=== PATIENT | female | born 1960 | race Caucasian/White ===

== ENCOUNTER 2016-07-30 17:11 | Emergency (ER) | payer OTHER, BC ==
[~2016-07-30] VITALS: Wt 96.6 kg
[~2016-07-30 17:11] MED LIST: CEFUROXIME AXE250 MG PO; KEFLEX500 MG PO; LISINOPRIL5 MG PO; METFORMIN HYDR500 M1 PO; PYRIDIUM200 M1 PO; ULTRAM50 MG PO
[2016-07-30 17:28] VITALS: BP 134/77
[2016-07-30] MEDS ORDERED: LISINOPRIL AND1 TAB PO (17:30)
[2016-07-30] MEDS ORDERED: NAPROSYN500 MG PO (17:33)
== END 2016-07-30 18:48 | disposition home or self-care (01) ==
LOC: ED 17:11
DX: S60.031A Contusion of right middle finger without damage to nail, initial encounter (principal); R03.0 Elevated blood-pressure reading, without diagnosis of hypertension; F17.200 Nicotine dependence, unspecified, uncomplicated; W23.0XXA Caught, crushed, jammed, or pinched between moving objects, initial encounter; Y93.89 Activity, other specified; Y92.9 Unspecified place or not applicable; Y99.9 Unspecified external cause status

== ENCOUNTER → 2016-12-09 | Outpatient (CLI) | payer OTHER, BC ==
[~2016-12-09] MED LIST changes: +LISINOPRIL AND1 TAB PO; +NAPROSYN500 MG PO
[2016-12-09 08:44] LABS: ALBUMIN 3.6 gm/dl (3.1-4.5); ALKALINE PHOSPHATASE 93 U/L (45-117); BUN 14 mg/dl (7-24); CHLORIDE 104 mmol/L (98-107); CHOLESTEROL 180 mg/dL (<200); CREATININE 0.68 mg/dL (0.55-1.02); HDL CHOLESTEROL 43 mg/dl (40-60); LDL CHOLESTEROL 94 mg/dL (9-159); POTASSIUM 4.4 mmol/L (3.5-5.1); SGOT/AST 13 IU/L (3-35); SGPT/ALT 31 U/L (12-78); SODIUM 138 mmol/L (136-145); TOTAL PROTEIN 7.6 gm/dL (6.4-8.2); TRIGLYCERIDES 214 mg/dl (<150); VLDL CHOLESTEROL 43 mg/dL (6-40)
== END | disposition home or self-care (01) ==
LOC: LAB 07:51
PROVIDERS: Family Medicine
DX: E11.9 Type 2 diabetes mellitus without complications (principal); Z72.89 Other problems related to lifestyle

== ENCOUNTER → 2016-12-29 | Outpatient (CLI) | payer OTHER, BC | END | disposition home or self-care (01) | LOC: MAMMO 06:51 | DX: Z12.31 Encounter for screening mammogram for malignant neoplasm of breast (principal) ==

== ENCOUNTER → 2017-01-26 | Outpatient (CLI) | payer OTHER, BC ==
[2017-01-26 08:16] LABS: BASO # 0.1 10*3/uL (0.0-0.1); BASO % 0.8 % (0.0-1.0); EOS # 0.3 10*3/uL (0.0-0.4); EOS % 3.5 % (1.0-4.0); HEMATOCRIT 41.8 % (37.0-47.0); HEMOGLOBIN 13.7 g/dl (12.0-16.0); LYMPH # 2.7 10*3/uL (1.3-4.4); LYMPH % 31.2 % (27.0-41.0); MEAN CELL VOLUME 91.1 fl (81.0-99.0); MEAN CORPUSCULAR HGB 29.8 pg (27.0-31.0); MEAN CORPUSCULAR HGB CONC 32.8 g/dl (33.0-37.0); MEAN PLATELET VOLUME 8.8 fl (9.6-12.3); MONO # 0.9 10*3/uL (0.1-1.0); MONO % 10.3 % (3.0-9.0); NEUT # 4.7 10*3/uL (2.3-7.9); NEUT % 53.9 % (47.0-73.0); PLATELET COUNT AUTOMATED 368 10*3/uL (130-400); RED BLOOD COUNT 4.59 10*6/uL (4.10-5.10); RED CELL DISTRI WIDTH 12.5 % (0-14.5); WHITE BLOOD COUNT 8.7 10*3/uL (4.8-10.8)
== END | disposition home or self-care (01) ==
LOC: LAB 07:49
PROVIDERS: Physician Assistant
DX: R19.5 Other fecal abnormalities (principal)

== ENCOUNTER → 2017-06-22 | Outpatient (CLI) | payer OTHER, BC | END | disposition home or self-care (01) | LOC: LAB 06:54 | DX: E11.9 Type 2 diabetes mellitus without complications (principal) ==

== ENCOUNTER → 2017-10-05 | Outpatient (CLI) | payer OTHER, BC | END | disposition home or self-care (01) | LOC: LAB 07:55 | DX: E11.9 Type 2 diabetes mellitus without complications (principal) ==

== ENCOUNTER → 2018-03-14 | Outpatient (CLI) | payer OTHER, BC | END | disposition home or self-care (01) | LOC: LAB 09:10 | DX: N39.0 Urinary tract infection, site not specified (principal) ==

== ENCOUNTER → 2019-01-26 | Outpatient (CLI) | payer OTHER, BC | END | disposition home or self-care (01) | LOC: LAB 08:30 | DX: E11.9 Type 2 diabetes mellitus without complications (principal) ==

== ENCOUNTER → 2019-06-27 | Outpatient (CLI) | payer BC | END | disposition home or self-care (01) | LOC: MAMMO 05-16 11:30 | DX: Z12.31 Encounter for screening mammogram for malignant neoplasm of breast (principal) ==

== ENCOUNTER 2020-02-11 14:51 | Inpatient (IN) | payer BC ==
[~2020-02-11] VITALS: Ht 167.6 cm; Wt 103.1 kg
[2020-02-11 15:08] VITALS: BP 113/67
[2020-02-11] MEDS ORDERED: NOVOLOG MI100 UNIT/2 SQ (15:26)
[2020-02-11 16:10] LABS: BASO % 0.3 % (0.0-1.0); HEMATOCRIT 40.3 % (37.0-47.0); LYMPH # 0.7 10*3/uL (1.3-4.4); LYMPH % 12.7 % (27.0-41.0); MEAN CORPUSCULAR HGB 28.3 pg (27.0-31.0); MEAN CORPUSCULAR HGB CONC 33.3 g/dl (33.0-37.0); MEAN PLATELET VOLUME 8.5 fl (9.6-12.3); MONO # 0.5 10*3/uL (0.1-1.0); MONO % 9.3 % (3.0-9.0); NEUT # 4.5 10*3/uL (2.3-7.9); NEUT % 77.4 % (47.0-73.0); PLATELET COUNT AUTOMATED 327 10*3/uL (130-400); RED BLOOD COUNT 4.74 10*6/uL (4.10-5.10); RED CELL DISTRI WIDTH 12.2 % (0-14.5); WHITE BLOOD COUNT 5.8 10*3/uL (4.8-10.8)
[2020-02-11 16:26] LABS: ALBUMIN 2.6 gm/dl (3.1-4.5); ALKALINE PHOSPHATASE 66 U/L (45-117); BUN 15 mg/dl (7-24); CHLORIDE 95 mmol/L (98-107); CREATININE 0.99 mg/dL (0.55-1.02); LIPASE 124 U/L (73-393); SGOT/AST 44 IU/L (3-35); SGPT/ALT 27 U/L (12-78); SODIUM 132 mmol/L (136-145); TOTAL PROTEIN 7.5 gm/dL (6.4-8.2)
[2020-02-11 16:36] LABS: TROPONIN I < 0.015 ng/ml (<0.045)
--- NOTE | 2020-02-11 17:51 | NUR ---
PT GAVE ME CONSENT TO SIGN HER ADMISSION PAPERS.
[2020-02-11 18:18] LABS: ABG BASE EXCESS 1.3 mmol/L (-2.0-2.0); ARTERIAL BLOOD GAS PH 7.482 (7.35-7.45)
--- NOTE | 2020-02-11 19:08 | NUR ---
NOTIFIED BY RESIDENT DR HENRY PTS PO2 WAS 57. STATES NEED TO CONTACT DR CHOU FOR CONSULT.
--- NOTE | 2020-02-11 19:09 | NUR ---
DR CHOU NOTIFIED ORDERED INTUBATION WITH 425 TIDAL,20 RATE,10 PEEP,100% 02.
--- NOTE | 2020-02-11 19:10 | NUR ---
DR JOHNSON NOTIFIED. REQUESTING ANESTHESIA INTUBATE PT.
--- NOTE | 2020-02-11 19:13 | NUR ---
DR CHOU ALSO ORDERED DIPROVAN,AND NIMBEX PARALYTIC.
--- NOTE | 2020-02-11 19:30 | NUR ---
FAMILY NOTFIED OF PTS ORDER TO BE INTUBATED. FAMILY REQUEST MOM GIVE THE OPTION OF BIPAP.
--- NOTE | 2020-02-11 19:36 | NUR ---
PT REFUSES INTUBATION. BUT WILL TRY BIPAP.
--- NOTE | 2020-02-11 19:38 | NUR ---
DR EFFIE AYALA OF PT REFUSING INTUBATION.
[2020-02-11 21:28] VITALS: BP 113/45
[2020-02-11 21:51] LABS: ABG BASE EXCESS 1.6 mmol/L (-2.0-2.0); ARTERIAL BLOOD GAS PH 7.471 (7.35-7.45)
--- NOTE | 2020-02-11 22:15 | NUR ---
PHARMACY NOTIFIED OF THE REMDESIVIR
[2020-02-11 22:37] VITALS: BP 130/45
--- NOTE | 2020-02-11 22:38 | NUR ---
REMDESIVIR STARTED BUT THE PATIENT COMPLAINED OF IV SITE PAIN. INFUSION HELD
--- NOTE | 2020-02-11 23:04 | NUR ---
RESIDENT CALLED FOR BGL OF 61. ORDERS TO PRECEED WITH D50. RECHECK BGL AND CAN ADMINISTER ANOTHER AMP OF D50
--- NOTE | 2020-02-11 23:19 | NUR ---
ORDER FOR DEXTROSE SENT TO [facility] PER SHI RIVAS RN MULTISKILL OPERATOR
--- NOTE | 2020-02-11 23:58 | NUR ---
PT RESTING IN BED WITH EYES OPEN WATCHING TV, NO ACUTE DISTRESS NOTED WHEN THIS RN EXITED THE ROOM
[2020-02-12] VITALS (10 sets, daily range): BP systolic 92–131; BP diastolic 42–77
--- NOTE | 2020-02-12 00:38 | NUR ---
PT RESTING IN BED WITH EYES OPEN, NO ACUTE DISTRESS NOTED UPON THIS RN EXITING THE ROOM
--- NOTE | 2020-02-12 01:58 | NUR ---
PT UP ON BEDSIDE COMMODE, NO ACUTE DISTRESS NOTED
--- NOTE | 2020-02-12 03:19 | NUR ---
PT RESTING IN BVED WITH EYES OPEN, BLANKETS PROVIDED UPON REQUEST, NO COMPLAINTS VOICED AT THIS TIME, NO ACUTE DISTRESS NOTED UPON THIS RN EXITING ROOM
[2020-02-12 05:52] LABS: ALBUMIN 2.6 gm/dl (3.1-4.5); ALKALINE PHOSPHATASE 68 U/L (45-117); BUN 19 mg/dl (7-24); CHLORIDE 96 mmol/L (98-107); CREATININE 0.78 mg/dL (0.55-1.02); LDH 455 U/L (84-246); POTASSIUM 2.6 mmol/L (3.5-5.1); SGOT/AST 56 IU/L (3-35); SGPT/ALT 33 U/L (12-78); SODIUM 131 mmol/L (136-145); TOTAL PROTEIN 7.1 gm/dL (6.4-8.2)
--- NOTE | 2020-02-12 06:02 | NUR ---
PT RESTING IN BED WITH EYES CLOSED, NO ACUTE DISTRESS NOTED UPON THIS RN EXITING THE ROOM
[2020-02-12 06:24] LABS: HEMATOCRIT 39.8 % (37.0-47.0); MEAN CELL VOLUME 85.8 fl (81.0-99.0); MEAN CORPUSCULAR HGB 28.9 pg (27.0-31.0); MEAN CORPUSCULAR HGB CONC 33.7 g/dl (33.0-37.0); MEAN PLATELET VOLUME 9.2 fl (9.6-12.3); PLATELET COUNT AUTOMATED 331 10*3/uL (130-400); RED BLOOD COUNT 4.64 10*6/uL (4.10-5.10); RED CELL DISTRI WIDTH 12.5 % (0-14.5); WHITE BLOOD COUNT 5.4 10*3/uL (4.8-10.8)
[2020-02-12 06:36] LABS: ACT PARTIAL THROMBO TIME 31.9 SECONDS (20.0-32.1)
[2020-02-12 07:04] LABS: ATYPICAL LYMPHS 3 % (0-0); TOTAL CELLS COUNTED 100 #CELLS
[2020-02-12 07:05] LABS: PLATELET SUFFICIENCY NORMAL (NORMAL)
[2020-02-12 07:48] LABS: ABG BASE EXCESS 1.2 mmol/L (-2.0-2.0); ARTERIAL BLOOD GAS PH 7.452 (7.35-7.45)
[2020-02-12 07:52] LABS: FERRITIN 883.7 ng/mL (10.0-291.0); VITAMIN D, 25-HYDROXY 27.2 ng/mL (30-100)
[2020-02-12] MEDS ORDERED: EUTHYROX50 MCG PO (09:54)
[2020-02-12] MEDS ORDERED: RELION NOV100 UNIT/1 SQ (09:55)
[2020-02-12] MEDS ORDERED: ZESTORETIC 10-1 EACH PO (09:55)
[2020-02-12] MEDS ORDERED: LIVALO2 M1 PO (09:56)
[2020-02-12] MEDS ORDERED: B-121000 MCG PO (10:00)
--- NOTE | 2020-02-12 10:03 | NUR ---
PT ASSISTED TO BEDSIDE COMMODE PT PLACED ON NRB AT 15LPM PT PULSE OX DROPPED TO 76% PT PLACED BACK IN BED AND BACK ON BIPAP PULSE OX TO 97%
--- NOTE | 2020-02-12 12:01 | NUR ---
PT RESTING IN BED WITH BIPAP IN PLACE. TOLERATING BIPAP WELL. BIPAP REMOVED FOR 30 SECONDS TO DRINK FLUIDS. LOVENOX GIVEN AND BGM CHECKED AT THIS TIME. SEE EMAR. DENIES NEEDS. BIPAP REPLACED.
--- NOTE | 2020-02-12 13:42 | NUR ---
PT DOES NOT WANT TO BE A DNRCC-ARREST. SHE WISHES TO REMAIN A FULL CODE, BUT IS REFUSING INTUBATION AT THIS TIME. PT STATES THAT SHE WANTS INTUBATED IF SHE WERE TO WORSEN OR GO INTO CARDIAC ARREST. PT EDUCATED ON HER CONDITION AND REASONS FOR INTUBATION. PT EXPRESSES UNDERSTANDING.
--- NOTE | 2020-02-12 13:49 | NUR ---
PT RESTING IN BED WITH EYES CLOSED. BIPAP IN PLACE.
--- NOTE | 2020-02-12 16:10 | NUR ---
PT ASSISTED TO BSC WITH NON-REBREATHER. PT ABLE TO TRANSFER WELL. LINENS CHANGED AT THIS TIME. PT HELPED BACK INTO BED AND BIPAP REPLACED.
[2020-02-12 16:44] LABS: BUN 21 mg/dl (7-24); CHLORIDE 100 mmol/L (98-107); CREATININE 0.92 mg/dL (0.55-1.02); POTASSIUM 3.5 mmol/L (3.5-5.1); SODIUM 133 mmol/L (136-145)
--- NOTE | 2020-02-12 21:29 | NUR ---
PT TAKEN OFF BIPAP FOR 30 SECONDS TO DRINK SOME FLUIDS. BIPAP REPLACED
--- NOTE | 2020-02-12 23:30 | NUR ---
A 59 YEAR OLD FEMALE PATIENT, admitted to [facility], under the services of MARY Frey DO with a diagnosis of SUSPECTED COVID-19 Chief complaint is SHORTNESS OF BREATH AND DECREASED PULSE OX AT HOME, DIARRHEA, DRY HEAVES,COUGH AND FEVERS Patient arrived via CART WITH RN from ER. Monitor applied. Initial assessment completed. Vital signs taken and recorded. See assessment for past medical history, medications and allergies. Patient and/or family oriented to [facility] Clothing/patient valuable form completed. QUETA BOONE
--- NOTE | 2020-02-13 | NUR ---
MEDICATION RECONCILLIATION COMPLETED AT THIS TIME WITH MEDIATION CLAIM HISTORY PATIENT KNOWS MEDICATIONS. [facility] WHICH WAS UPDATED
--- NOTE | 2020-02-13 00:15 | NUR ---
THIS RN SPENT SOME TIME EXPLAINING THE IMPORTNCE OF SELF PRONING. PATIENT HAD STATED THAT HER BACK CHRONICALLY ACHED AND THAT LAYING PRONE WOULD AGGRAVATE IT. STATES SHE WOULD ATTEMPT TO LAY ON SIDE. CURRENTLY 100% ON BIPAP AND IS 94% ON PO2
--- NOTE | 2020-02-13 01:07 | NUR ---
PATIENT RESTING WITH EYES CLOSED, IS LAYING ON SIDE, NO SIGNS OR SYMPTOMS OF DISTRESS SEEN. SHE IS WITHIN SIGHT OF THIS RN. VITAL SIGNS STABLE. PULSE OXIMETRY IS 96% ON 100% FIO2. RN WILL CONTINUE TO MONITOR
--- NOTE | 2020-02-13 02:30 | NUR ---
PATIENT ASSISTED UP TO THE BEDSIDE COMMODE, ON THE BIPAP, TOLERATED WELL BUT PATIENT O2 SATURATION DID DROP TO 90% FROM THE INITIAL 96% WAS INCONTINENT OF LARGE AMOUNT OF URINE IN BRIEF THAT SHE WAS WEARING BUT ALSO URINATED INTO THE BEDSIDE COMMODE. URINES TO BE COLLECTED AND SENT.
--- NOTE | 2020-02-13 02:38 | NUR ---
URINES COLLECTED AND SENT TO THE LAB AT THIS TIME, PER DRS ORDERS.
[2020-02-13 02:47] LABS: BILIRUBIN Negative (Negative); BLOOD Negative (Negative); CLARITY Clear (Clear); COLOR Yellow (Yellow); GLUCOSE Negative (Negative); KETONE Negative (Negative); LEUKO ESTERASE 2+ (Negative); NITRITE Negative (Negative); PH 5.5 (4.5-8.0); UROBILINOGEN 0.2 E.U./dl (0.0-1.0)
[2020-02-13 02:59] LABS: BACTERIA 4+; EPITHELIAL CELLS 21-30; MUCOUS TRACE; WBC 21-30 wbc/hpf (0-5)
[2020-02-13 04:00] VITALS: BP 105/57
[2020-02-13 05:58] LABS: ALBUMIN 2.5 gm/dl (3.1-4.5); ALKALINE PHOSPHATASE 72 U/L (45-117); BUN 29 mg/dl (7-24); CHLORIDE 102 mmol/L (98-107); CREATININE 0.84 mg/dL (0.55-1.02); LDH 456 U/L (84-246); POTASSIUM 3.5 mmol/L (3.5-5.1); SGOT/AST 43 IU/L (3-35); SGPT/ALT 33 U/L (12-78); SODIUM 136 mmol/L (136-145); TOTAL PROTEIN 7.2 gm/dL (6.4-8.2)
[2020-02-13 06:35] LABS: HEMATOCRIT 41.9 % (37.0-47.0); MEAN CELL VOLUME 86.7 fl (81.0-99.0); MEAN CORPUSCULAR HGB 28.6 pg (27.0-31.0); MEAN CORPUSCULAR HGB CONC 32.9 g/dl (33.0-37.0); MEAN PLATELET VOLUME 8.9 fl (9.6-12.3); PLATELET COUNT AUTOMATED 418 10*3/uL (130-400); RED BLOOD COUNT 4.83 10*6/uL (4.10-5.10); RED CELL DISTRI WIDTH 12.5 % (0-14.5); WHITE BLOOD COUNT 5.2 10*3/uL (4.8-10.8)
[2020-02-13 07:09] LABS: ATYPICAL LYMPHS 1 % (0-0); PLATELET SUFFICIENCY HIGH (NORMAL); TOTAL CELLS COUNTED 100 #CELLS
[2020-02-13 08:00] VITALS: BP 116/74
[2020-02-13 08:45] LABS: ABG BASE EXCESS 1.7 mmol/L (-2.0-2.0); ARTERIAL BLOOD GAS PH 7.447 (7.35-7.45)
--- NOTE | 2020-02-13 10:36 | NUR ---
0830 Discussed proning w/ pt. Stated she hasn't laid on her stomach for years. 0900 RT in and re- discussed proning w/ pt. sips of water given and assisted per, RT to prone position Encouraged to remain prone for 2 hours. Remains proned at this time. 10 a meds held until pt. Awakens.
[2020-02-13 12:00] VITALS: BP 122/62
--- NOTE | 2020-02-13 12:11 | NUR ---
CM spoke to , Mahin, via phone. Patient states lives at home with her . There are 13 steps in the home. Physician: Dr. Luigi Venegas [facility] Home health services: none Patient's level of ADLs: INDEPENDENT Patient has working utilities: yes DME: none Follow-up physician's appointment after d/c: will be made by the hospitalist nurse director upon discharge Does patient want to access PORTAL?: no Discharge plan discussed with patient's . He states she lives at home with him. She is normally independent in her ADLs and ambulation. Discussed home health care services and he declines stating his daughter is a nurse. When medically stable she will be discharged to home. She will have transportation on discharge whether it will be him or their daughter. TYESHA KELLY
--- NOTE | 2020-02-13 12:57 | NUR ---
PHYSICAL THERAPY Nursing screen complete and chart reviewed. Patient admitted with PUI Covid-19, pending PCR results. Recommend skilled PT evaluation if decline in functional mobility presents. Thank you. Allegra Marr,PT,DPT
[2020-02-13 16:00] VITALS: BP 141/67; BP 176/77
--- NOTE | 2020-02-13 16:22 | NUR ---
1130 dR. Marquez IN TO EVAULATE. Strongly recommended intubation . This was discussed at length w/ pt. and Dtr. Adelina . Pt. Agreeable to intubation, and line placement . 1400 Anesthesia Stuart Garcia PATIENT ACCESS ASSOCIATE was notified of need for intubation and line placement. 1430 Pt. intubated w/ 7.5 ETT. w/o difficulty , secured to vent. MLC was then placed to RIJ, with good blood return to all ports. Arterial line was then placed to RR , zero gary w/ good response and wave form. OGT and lala cath were also placed and CXR was complete to confirm all lines and tubes.
[2020-02-13 17:26] LABS: ABG BASE EXCESS -2.7 mmol/L (-2.0-2.0); ARTERIAL BLOOD GAS PH 7.256 (7.35-7.45)
--- NOTE | 2020-02-13 18:40 | NUR ---
PT PRONED UNDER ANESTHESIA DIRECTION ORDERED BY DR CHOU. TOLERATED WELL. LIU FRANCISCO RN
[2020-02-13 20:00] VITALS: BP 156/69
[2020-02-13 20:26] LABS: ABG BASE EXCESS -1.7 mmol/L (-2.0-2.0); ARTERIAL BLOOD GAS PH 7.279 (7.35-7.45)
--- NOTE | 2020-02-13 21:45 | NUR ---
YORDY Novoa NOTIFIED THAT PT HAS HTN WITH THE INITIATION OF REMDESIVER BY >60 POINT SBP AND THAT HTN RESOLVED ONCE THE DRUG WAS STOPPED, AND RESTARTED AT 50CC/HR.
[2020-02-13 22:00] VITALS: BP 126/65
--- NOTE | 2020-02-13 22:15 | NUR ---
DBP NOW 120. YORDY Novoa NOTIFIED AND SUGGESTED STOPPING REMDESIVER, AND NOTIFYING DR WELCH IN AM.
--- NOTE | 2020-02-13 22:24 | NUR ---
MEDICATED WITH IV DILAUDID ORDERED FOR HX BACK PAIN AND INABILTY TO PRONE PRIOR TO INTUBATION D/T BACK PAIN.
--- NOTE | 2020-02-13 23:00 | NUR ---
DAUGHTER UPDATED ON PT'S CONDITION.
--- NOTE | 2020-02-13 23:12 | NUR ---
PAIN MEDICATION APPEARS TO BE EFFECTIVE HAS BP HAS EVEN FURTHER NORMALIZED.
[2020-02-14] VITALS (12 sets, daily range): BP systolic 99–175; BP diastolic 54–78
--- NOTE | 2020-02-14 04:42 | NUR ---
MEDICATED WITH IV DILAUDID ORDERED FOR SIGNS OF DISCOMFORT/HTN/HX MYALGIA/BACK PAIN.
--- NOTE | 2020-02-14 05:40 | NUR ---
MEDICATION EFFECTIVE FOR DISCOMFORT.
[2020-02-14 06:07] LABS: ALBUMIN 2.6 gm/dl (3.1-4.5); ALKALINE PHOSPHATASE 77 U/L (45-117); CHLORIDE 103 mmol/L (98-107); CPK 53 U/L (26-192); CREATININE 0.97 mg/dL (0.55-1.02); LDH 391 U/L (84-246); SGOT/AST 34 IU/L (3-35); SGPT/ALT 33 U/L (12-78); SODIUM 139 mmol/L (136-145); TOTAL PROTEIN 7.1 gm/dL (6.4-8.2); TRIGLYCERIDES 238 mg/dl (<150)
[2020-02-14 06:10] LABS: BUN 45 mg/dl (7-24)
[2020-02-14 07:16] LABS: HEMATOCRIT 43.6 % (37.0-47.0); MEAN CORPUSCULAR HGB 28.5 pg (27.0-31.0); MEAN CORPUSCULAR HGB CONC 31.4 g/dl (33.0-37.0); MEAN PLATELET VOLUME 8.8 fl (9.6-12.3); PLATELET COUNT AUTOMATED 540 10*3/uL (130-400); RED BLOOD COUNT 4.81 10*6/uL (4.10-5.10); RED CELL DISTRI WIDTH 12.9 % (0-14.5)
[2020-02-14 07:20] LABS: ABG BASE EXCESS -0.3 mmol/L (-2.0-2.0); ARTERIAL BLOOD GAS PH 7.24 (7.35-7.45)
[2020-02-14 07:23] LABS: MEAN CELL VOLUME 90.6 fl (81.0-99.0)
--- NOTE | 2020-02-14 08:00 | NUR ---
REMAINS IN COVID ISOLATION ON VENT. VS TAKEN AND RECORDED. SKIN WARM AND DRY. PATIENT REMAINS IN PRONE POSITION. HEAD MOVED TO LOOK TO RIGHT WITH ARMS REPOSITIONED ALSO. RT BRACHIAL ARTERY LINE CALIBRATED WITH GOOD WAVE FORM. GLYNN PATENT FOR STRAW COLORED URINE. OGT PLACEMENT CHECKED WITH AIR BOLUS. LIU FRANCISCO RN
[2020-02-14 08:22] LABS: PLATELET SUFFICIENCY HIGH (NORMAL); TOTAL CELLS COUNTED 100 #CELLS
--- NOTE | 2020-02-14 09:00 | NUR ---
Patient is intubated and in COVID isolation precautions. CM will continue to follow for any discharge planning needs.
--- NOTE | 2020-02-14 10:30 | NUR ---
PATIENT UNPRONED. TOLERATED WELL. NO WOUNDS NOTED. LIU FRANCISCO RN
--- NOTE | 2020-02-14 10:45 | NUR ---
PHILOSOPHY FACULTY SCHOOL AGE PROGRAM ASSOCIATE PHONED TO PRONE PT PER DR CHOU.
--- NOTE | 2020-02-14 14:17 | NUR ---
REPOSTIONED FOR COMFORT. NO WOUNDS. DIPROVAN AND NIMBEX CONTINUE. LIU FRANCISCO RN
[2020-02-14 14:23] LABS: ABG BASE EXCESS 1.9 mmol/L (-2.0-2.0); ARTERIAL BLOOD GAS PH 7.36 (7.35-7.45)
--- NOTE | 2020-02-14 19:15 | NUR ---
RESTING IN THE SUPINE POSITION WITH NO DISTRESS NOTED. NIBEX AND DIPRIVAN GTTS REMAIN. VSS. DAUGHTER UPDATED ON PT'S CONDITION.
[2020-02-14 21:45] LABS: ABG BASE EXCESS 2.2 mmol/L (-2.0-2.0); ARTERIAL BLOOD GAS PH 7.311 (7.35-7.45)
--- NOTE | 2020-02-14 22:00 | NUR ---
called with ABG results. Stated to prone the patient. ABG in 2 hours and in the AM.
--- NOTE | 2020-02-14 22:05 | NUR ---
MEDICATED WITH IV DILAUDID ORDERED FOR PT NODDING YES TO C/O BACK PAIN.
--- NOTE | 2020-02-14 23:00 | NUR ---
DR CHOU NOTIFIED OF MAP 65-70. NEW ORDERS RECEIVED.
--- NOTE | 2020-02-14 23:00 | NUR ---
MEDICATION APPEARS EFFECTIVE FOR PAIN.
[2020-02-15] VITALS (12 sets, daily range): BP systolic 103–165; BP diastolic 56–77
--- NOTE | 2020-02-15 00:30 | NUR ---
Pt proned with no complications with the airway. Pt is in swimming position with her head and breathing tube to the patients left. FiO2 60% - SPO2 98%
[2020-02-15 03:07] LABS: ABG BASE EXCESS 2.2 mmol/L (-2.0-2.0); ARTERIAL BLOOD GAS PH 7.289 (7.35-7.45)
[2020-02-15 06:42] LABS: HEMATOCRIT 42.7 % (37.0-47.0); MEAN CORPUSCULAR HGB 27.9 pg (27.0-31.0); MEAN CORPUSCULAR HGB CONC 30.7 g/dl (33.0-37.0); MEAN PLATELET VOLUME 8.7 fl (9.6-12.3); PLATELET COUNT AUTOMATED 551 10*3/uL (130-400); RED BLOOD COUNT 4.69 10*6/uL (4.10-5.10); RED CELL DISTRI WIDTH 13.2 % (0-14.5); WHITE BLOOD COUNT 15.6 10*3/uL (4.8-10.8)
[2020-02-15 06:46] LABS: ALBUMIN 2.5 gm/dl (3.1-4.5); ALKALINE PHOSPHATASE 80 U/L (45-117); CHLORIDE 106 mmol/L (98-107); CREATININE 0.97 mg/dL (0.55-1.02); LDH 343 U/L (84-246); POTASSIUM 3.8 mmol/L (3.5-5.1); SGOT/AST 22 IU/L (3-35); SGPT/ALT 30 U/L (12-78); SODIUM 143 mmol/L (136-145); TOTAL PROTEIN 6.9 gm/dL (6.4-8.2); TRIGLYCERIDES 233 mg/dl (<150)
[2020-02-15 06:48] LABS: BUN 55 mg/dl (7-24); CPK 144 U/L (26-192)
--- NOTE | 2020-02-15 06:55 | NUR ---
MEDICATED WITH IV DILAUDID ORDERED FOR NOTED AGITATION AND HX BACK PAIN.
[2020-02-15 07:22] LABS: ATYPICAL LYMPHS 1 % (0-0); PLATELET SUFFICIENCY HIGH (NORMAL); TOTAL CELLS COUNTED 100 #CELLS
--- NOTE | 2020-02-15 07:30 | NUR ---
MEDICATION EFFECTIVE FOR PAIN/AGITATION.
[2020-02-15 07:36] LABS: ABG BASE EXCESS 1.1 mmol/L (-2.0-2.0); ARTERIAL BLOOD GAS PH 7.274 (7.35-7.45)
--- NOTE | 2020-02-15 09:33 | NUR ---
PT REMAINS INTUBATED,PARALYZED AND SEDATED. VSS. LUNG ROBINS DIM. POX 96% ON 60% FIO2. PT SUCTIONED FOR A SCANT AMOUNT OF WHITE MUCUS. OGT PLACEMENT VERIFIED WITH AN AIR BOLUS. ABD. SOFT WITH ACTIVE BOWEL SOUNDS. GLYNN PATENT FOR CLEAR STRAW COLORED URINE. NO PERIPHERAL EDEMA NOTED AT THIS TIME. PT IS IN PRONED POSITION UNTIL 1630 TODAY. WILL CONTINUE TO MONITOR PT.
--- NOTE | 2020-02-15 12:11 | NUR ---
IV MORPHINE GIVEN PER ORDER OF DR CHOU. PT'S SBP DID DROP FOR A SHORT PD OF TIME FROM 120'S TO 80'S AND THEN RETIRNED TO 110'S. PT REMAINS PRONED.
[2020-02-15 13:50] LABS: ABG BASE EXCESS 1.9 mmol/L (-2.0-2.0); ARTERIAL BLOOD GAS PH 7.287 (7.35-7.45)
--- NOTE | 2020-02-15 16:30 | NUR ---
PT UNPRONED. PT TOLERATED PRONING WELL. ABG'S 2 HOURS AFTER UNPRONED. WELTS NOTED TO LEVENOX INJECTION SITES. RESIDENT NOTIFIED.
--- NOTE | 2020-02-15 16:54 | NUR ---
PT SUPINED AT 4:45. PT TOLERATED WELL. TUBE IS SECURE AND IN PLACE.
[2020-02-15 19:33] LABS: ABG BASE EXCESS 4.2 mmol/L (-2.0-2.0); ARTERIAL BLOOD GAS PH 7.314 (7.35-7.45)
[2020-02-15 20:06] LABS: ABG BASE EXCESS 4.3 mmol/L (-2.0-2.0); ARTERIAL BLOOD GAS PH 7.314 (7.35-7.45)
--- NOTE | 2020-02-15 21:13 | NUR ---
MEDICATED WITH PO TYLENOL VIA OG FOR TEMP OF 100.8.
--- NOTE | 2020-02-15 21:30 | NUR ---
DAUGHTER UPDATED ON PT'S CONDITION.
[2020-02-15 23:11] LABS: ABG BASE EXCESS 4.5 mmol/L (-2.0-2.0); ARTERIAL BLOOD GAS PH 7.31 (7.35-7.45)
[2020-02-16] VITALS (15 sets, daily range): BP systolic 82–180; BP diastolic 44–82
--- NOTE | 2020-02-16 04:00 | NUR ---
TEMP 99.5. TYLENOL SOMEWHAT EFFECTIVE.
--- NOTE | 2020-02-16 04:33 | NUR ---
DR WANG NOTIFIED OF BLANCHED/WHEELED AREA AROUND LOVENOX INJECTIONS, OOZING IV SITE 12HRS POST REMOVAL AND STOOL OB+. LOVENOX NOT GIVEN LAST NIGHT AND NOW TO BE D/C'D.
--- NOTE | 2020-02-16 06:04 | NUR ---
MEDICATED WITH IV TORADOL ORDERED FOR SIGNS OF IRRITATION, HX BACK PAIN.
[2020-02-16 06:15] LABS: HEMATOCRIT 39.4 % (37.0-47.0); MEAN CELL VOLUME 92.7 fl (81.0-99.0); MEAN CORPUSCULAR HGB CONC 30.2 g/dl (33.0-37.0); MEAN PLATELET VOLUME 8.9 fl (9.6-12.3); PLATELET COUNT AUTOMATED 476 10*3/uL (130-400); RED BLOOD COUNT 4.25 10*6/uL (4.10-5.10); RED CELL DISTRI WIDTH 13.3 % (0-14.5); WHITE BLOOD COUNT 10.5 10*3/uL (4.8-10.8)
--- NOTE | 2020-02-16 06:15 | NUR ---
FIO2 INCREASED TO 45%.
[2020-02-16 06:16] LABS: ALBUMIN 2.7 gm/dl (3.1-4.5); ALKALINE PHOSPHATASE 76 U/L (45-117); BUN 64 mg/dl (7-24); CHLORIDE 110 mmol/L (98-107); CREATININE 1.03 mg/dL (0.55-1.02); LDH 311 U/L (84-246); POTASSIUM 4.5 mmol/L (3.5-5.1); SGOT/AST 24 IU/L (3-35); SGPT/ALT 28 U/L (12-78); SODIUM 144 mmol/L (136-145); TOTAL PROTEIN 6.9 gm/dL (6.4-8.2); TRIGLYCERIDES 214 mg/dl (<150)
[2020-02-16 06:21] LABS: CPK 221 U/L (26-192)
[2020-02-16 07:25] LABS: TOTAL CELLS COUNTED 100 #CELLS
[2020-02-16 07:26] LABS: PLATELET SUFFICIENCY HIGH (NORMAL)
[2020-02-16 08:35] LABS: ABG BASE EXCESS 4.7 mmol/L (-2.0-2.0); ARTERIAL BLOOD GAS PH 7.363 (7.35-7.45)
[2020-02-16 09:15] LABS: ATYPICAL LYMPHS 2 % (0-0)
--- NOTE | 2020-02-16 10:01 | NUR ---
0822 Diprovan and Nimbex to OFF . w/i 5 min. pt. pulling at restraints and opening eyes spontaniously. Attempt w/ reassurance and re-orientation not effective. 0849 for the safety of pt. and prevention of extubation . meds were resumed.
--- NOTE | 2020-02-16 12:11 | NUR ---
Repositioned q2h. oral care q2h. propofol decreased to [address] Altamirano in to evaulate.
[2020-02-16 14:50] LABS: ARTERIAL BLOOD GAS PH 7.334 (7.35-7.45)
--- NOTE | 2020-02-16 16:37 | NUR ---
Dr. Magaña in to [facility] . Orders were recieved. Heparin gtt and insulin gtt up to infuse. Repositioned q2h. oral care q2h. PM care complete.
--- NOTE | 2020-02-16 19:30 | NUR ---
Patient resting quietly with no c/o discomfort. Respirations easy and regular. Vital signs stable. No overt distress. CYRUS DIAMOND
--- NOTE | 2020-02-16 20:00 | NUR ---
DAUGHTER UPDATED ON PT'S CONDITION.
[2020-02-17] VITALS (12 sets, daily range): BP systolic 110–188; BP diastolic 53–87
--- NOTE | 2020-02-17 | NUR ---
Patient resting quietly with no c/o discomfort. Respirations easy and regular. Vital signs stable. No overt distress. CYRUS DIAMOND
--- NOTE | 2020-02-17 04:00 | NUR ---
Patient resting quietly with no c/o discomfort. Respirations easy and regular. Vital signs stable. No overt distress. CYRUS DIAMOND
[2020-02-17 06:22] LABS: BASO % 0.1 % (0.0-1.0); HEMATOCRIT 36.9 % (37.0-47.0); LYMPH # 1.2 10*3/uL (1.3-4.4); LYMPH % 7.6 % (27.0-41.0); MEAN CELL VOLUME 95.3 fl (81.0-99.0); MEAN CORPUSCULAR HGB 28.7 pg (27.0-31.0); MEAN CORPUSCULAR HGB CONC 30.1 g/dl (33.0-37.0); MEAN PLATELET VOLUME 9.2 fl (9.6-12.3); MONO # 1.5 10*3/uL (0.1-1.0); MONO % 9.2 % (3.0-9.0); NEUT # 13.3 10*3/uL (2.3-7.9); NEUT % 81.7 % (47.0-73.0); PLATELET COUNT AUTOMATED 427 10*3/uL (130-400); RED BLOOD COUNT 3.87 10*6/uL (4.10-5.10); RED CELL DISTRI WIDTH 13.7 % (0-14.5); WHITE BLOOD COUNT 16.2 10*3/uL (4.8-10.8)
[2020-02-17 06:37] LABS: ALBUMIN 2.3 gm/dl (3.1-4.5); ALKALINE PHOSPHATASE 67 U/L (45-117); CHLORIDE 120 mmol/L (98-107); CREATININE 0.75 mg/dL (0.55-1.02); LDH 256 U/L (84-246); POTASSIUM 4.3 mmol/L (3.5-5.1); SGOT/AST 19 IU/L (3-35); SGPT/ALT 27 U/L (12-78); SODIUM 152 mmol/L (136-145); TOTAL PROTEIN 6.4 gm/dL (6.4-8.2)
[2020-02-17 06:56] LABS: BUN 50 mg/dl (7-24)
[2020-02-17 06:59] LABS: ACT PARTIAL THROMBO TIME 52.4 SECONDS (20.0-32.1)
[2020-02-17 08:15] LABS: ABG BASE EXCESS 3.7 mmol/L (-2.0-2.0); ARTERIAL BLOOD GAS PH 7.337 (7.35-7.45)
--- NOTE | 2020-02-17 08:42 | NUR ---
0753 Sedation to OFF, Full assessment. OGT secure, placement verification w/ air bolus. ETT secure 23 at lip level. Oral mucosa dry and oral care given . ETT suction for large amt thick yellow mucous. MLC RIJ secure. dressing intact. 0800 Awake restless shaking head and pulling at soft restraint. Attempts to re- orient failed. Opens eyes to mention of daughters name. 0821 Sedation resumed. 0847 continues to move head and BUE less aggressivly.
--- NOTE | 2020-02-17 09:50 | NUR ---
Dr. Elizabeth ans service was notified of consult.
--- NOTE | 2020-02-17 14:34 | NUR ---
dR. Marquez IN TO [facility]. Orders were recieved. ETT was advanced 1.5cm to 24.5 at lip level. per RT Maira. TF was increased to 30/h. pt. was repositioned and oral care was given.
[2020-02-17 16:10] LABS: ABG BASE EXCESS 4.8 mmol/L (-2.0-2.0); ARTERIAL BLOOD GAS PH 7.346 (7.35-7.45)
--- NOTE | 2020-02-17 18:49 | NUR ---
BGM <150 x 3 , BGM direction changed to q2h. Repositioned Q2h.
[2020-02-18] VITALS (12 sets, daily range): BP systolic 100–186; BP diastolic 53–85
--- NOTE | 2020-02-18 00:45 | NUR ---
Patient resting quietly with no c/o discomfort. Respirations easy and regular. Vital signs stable. No overt distress. CYRUS DIAMOND
--- NOTE | 2020-02-18 04:00 | NUR ---
CXR EXPEDITED FOR SATURATION. CXR IMAGING SHOWS WORSENING ON THE LEFT. ABGS DRAWN AND ARE COMPARABLE TO THE LAST, YET A MISMATCH TO THE SPO2 AND PO2 EXISTS. SPO2 SENSOR MOVED TO LOWER EXTREMITY WHERE SPO2 REFLECTS A MORE TRUE SATURATION.
[2020-02-18 04:13] LABS: ABG BASE EXCESS 5.7 mmol/L (-2.0-2.0); ARTERIAL BLOOD GAS PH 7.383 (7.35-7.45)
[2020-02-18 06:27] LABS: BUN 41 mg/dl (7-24); CHLORIDE 117 mmol/L (98-107); CREATININE 0.59 mg/dL (0.55-1.02); POTASSIUM 4.4 mmol/L (3.5-5.1); SGOT/AST 32 IU/L (3-35); SGPT/ALT 33 U/L (12-78); SODIUM 149 mmol/L (136-145)
[2020-02-18 06:31] LABS: ALKALINE PHOSPHATASE 62 U/L (45-117); CPK 54 U/L (26-192); LDH 251 U/L (84-246)
[2020-02-18 06:58] LABS: HEMATOCRIT 33.3 % (37.0-47.0); MEAN CELL VOLUME 96.2 fl (81.0-99.0); MEAN CORPUSCULAR HGB 28.6 pg (27.0-31.0); MEAN CORPUSCULAR HGB CONC 29.7 g/dl (33.0-37.0); MEAN PLATELET VOLUME 9.5 fl (9.6-12.3); PLATELET COUNT AUTOMATED 383 10*3/uL (130-400); RED BLOOD COUNT 3.46 10*6/uL (4.10-5.10); RED CELL DISTRI WIDTH 13.8 % (0-14.5); WHITE BLOOD COUNT 13.5 10*3/uL (4.8-10.8)
[2020-02-18 08:57] LABS: PLATELET SUFFICIENCY NORMAL (NORMAL); TOTAL CELLS COUNTED 100 #CELLS
--- NOTE | 2020-02-18 08:57 | NUR ---
0725 Sedation to off. Full assessment OGT secure placement verification w/ air bolus.ETT secure. Oral mucosa dry and oral care was given. w/i 5 min. w/o sedation. Pt. is pulling at restraint and shaking head. opens eyes spontaneously , does not follow verbal command. Incontinent of loose dark green stool. christy care was given , and pt. was repositioned .
--- NOTE | 2020-02-18 09:00 | NUR ---
Patient is intubated and in COVID isolation precautions. CM will continue to follow for any discharge planning needs.
[2020-02-18 09:03] LABS: ABG BASE EXCESS 4.9 mmol/L (-2.0-2.0); ARTERIAL BLOOD GAS PH 7.427 (7.35-7.45)
[2020-02-18 09:20] LABS: ACT PARTIAL THROMBO TIME 55.2 SECONDS (20.0-32.1)
--- NOTE | 2020-02-18 10:56 | NUR ---
Repositioned. Oral care. 0930 Sedation was resumed. Pupils 2mm equal and reactive. Dr. Altamirano in .
--- NOTE | 2020-02-18 13:27 | NUR ---
1230 Dr. Magaña in to evaulate. 1245 Nimbex to off , propofol to 10 mcg and pt. was placed to c-pap. Currently tolerating this well 1320 Incontinent large amt green liquid stool. Complete bed bath was given and pt. was re-positioned to back.
[2020-02-18 15:18] LABS: ABG BASE EXCESS 6.2 mmol/L (-2.0-2.0); ARTERIAL BLOOD GAS PH 7.465 (7.35-7.45)
--- NOTE | 2020-02-18 19:11 | NUR ---
24 HR chart check completed.
[2020-02-18 20:08] LABS: ABG BASE EXCESS 7.1 mmol/L (-2.0-2.0); ARTERIAL BLOOD GAS PH 7.48 (7.35-7.45)
--- NOTE | 2020-02-18 22:40 | NUR ---
Patients blood pressure going for 160-180/80's, notified Dr. Oro and received new orders to start home meds.
[2020-02-19] VITALS (12 sets, daily range): BP systolic 130–170; BP diastolic 58–84
--- NOTE | 2020-02-19 00:42 | NUR ---
Patients blood pressure had come down to 140/80's after home meds started and when scheduled morphine and haldol given. Will continue to monitor.
[2020-02-19 05:57] LABS: ALBUMIN 2.1 gm/dl (3.1-4.5); ALKALINE PHOSPHATASE 79 U/L (45-117); CHLORIDE 111 mmol/L (98-107); LDH 394 U/L (84-246); POTASSIUM 4.2 mmol/L (3.5-5.1); SGOT/AST 30 IU/L (3-35); SGPT/ALT 39 U/L (12-78); SODIUM 145 mmol/L (136-145); TOTAL PROTEIN 6.3 gm/dL (6.4-8.2)
[2020-02-19 06:48] LABS: HEMATOCRIT 34.1 % (37.0-47.0); MEAN CORPUSCULAR HGB 28.9 pg (27.0-31.0); MEAN CORPUSCULAR HGB CONC 31.7 g/dl (33.0-37.0); MEAN PLATELET VOLUME 9.6 fl (9.6-12.3); PLATELET COUNT AUTOMATED 416 10*3/uL (130-400); RED BLOOD COUNT 3.74 10*6/uL (4.10-5.10); RED CELL DISTRI WIDTH 13.4 % (0-14.5); WHITE BLOOD COUNT 15.5 10*3/uL (4.8-10.8)
[2020-02-19 06:57] LABS: BUN 30 mg/dl (7-24); CPK 97 U/L (26-192)
[2020-02-19 07:03] LABS: MEAN CELL VOLUME 91.2 fl (81.0-99.0)
[2020-02-19 08:06] LABS: PLATELET SUFFICIENCY HIGH (NORMAL); TOTAL CELLS COUNTED 100 #CELLS
[2020-02-19 08:55] LABS: ABG BASE EXCESS 7.2 mmol/L (-2.0-2.0); ARTERIAL BLOOD GAS PH 7.517 (7.35-7.45)
--- NOTE | 2020-02-19 12:40 | NUR ---
SETTINGS CHANGED TO 11/[address] CHOU. PT TOLERATING WELLSPO2 92% , HR 102
[2020-02-19 14:36] LABS: ABG BASE EXCESS 8.8 mmol/L (-2.0-2.0); ARTERIAL BLOOD GAS PH 7.507 (7.35-7.45)
--- NOTE | 2020-02-19 18:00 | NUR ---
BLOOD GLUCOSE 257. INSULIN GTT INCREASED TO 11UNITS/HR.
[2020-02-20] VITALS (19 sets, daily range): BP systolic 76–145; BP diastolic 44–96
--- NOTE | 2020-02-20 05:49 | NUR ---
Patient tolerated cpap mode through the night with no issues. Pox remains between 92-95%. Patient opens eyes when talking to her, responds by shaking head no. Very drowsy.
[2020-02-20 06:06] LABS: ALBUMIN 2.4 gm/dl (3.1-4.5); ALKALINE PHOSPHATASE 79 U/L (45-117); BUN 36 mg/dl (7-24); CHLORIDE 108 mmol/L (98-107); CPK 70 U/L (26-192); CREATININE 0.71 mg/dL (0.55-1.02); LDH 354 U/L (84-246); POTASSIUM 4.6 mmol/L (3.5-5.1); SGOT/AST 25 IU/L (3-35); SGPT/ALT 33 U/L (12-78); SODIUM 143 mmol/L (136-145); TOTAL PROTEIN 6.6 gm/dL (6.4-8.2)
[2020-02-20 06:24] LABS: HEMATOCRIT 34.2 % (37.0-47.0); MEAN CELL VOLUME 90.2 fl (81.0-99.0); MEAN CORPUSCULAR HGB 28.2 pg (27.0-31.0); MEAN CORPUSCULAR HGB CONC 31.3 g/dl (33.0-37.0); PLATELET COUNT AUTOMATED 376 10*3/uL (130-400); RED BLOOD COUNT 3.79 10*6/uL (4.10-5.10); RED CELL DISTRI WIDTH 13.3 % (0-14.5); WHITE BLOOD COUNT 16.4 10*3/uL (4.8-10.8)
[2020-02-20 06:57] LABS: PLATELET SUFFICIENCY NORMAL (NORMAL); TOTAL CELLS COUNTED 100 #CELLS
--- NOTE | 2020-02-20 08:58 | NUR ---
Eyes open spontaneously, cough and gag intact. Oral suction for scant mucous. Oral mucosa dry and oral care was given. NGT secure , placement verification w/ air bolus. ETT secure to C-Pap .NGT was placed to rt. nare w/o difficulty. CXR confirmation pending. Although pt. opens eyes spontaneously she does not follow verbal command. Armendariz cath is patent. MLC is secure to [facility]. A-line is secure . Zero gary w/ good dynamic response and wave form.
[2020-02-20 09:00] LABS: ABG BASE EXCESS 7.6 mmol/L (-2.0-2.0); ARTERIAL BLOOD GAS PH 7.518 (7.35-7.45)
--- NOTE | 2020-02-20 10:56 | NUR ---
Patient face sheet faxed to [facility] who is in network with [facility]. They will check benefits and get back to case management.
--- NOTE | 2020-02-20 12:32 | NUR ---
dR. Marquez in to [facility] . orders recieved. Bedside bronchoscopy complete at bedside. Specimens hand carried to lab.
--- NOTE | 2020-02-20 12:58 | NUR ---
pt had bronchoscopy performed. pt tolerated well
[2020-02-20 15:48] LABS: ABG BASE EXCESS 3.7 mmol/L (-2.0-2.0); ARTERIAL BLOOD GAS PH 7.475 (7.35-7.45)
--- NOTE | 2020-02-20 16:36 | NUR ---
Incontinent large amt liquid brown stool. christy care given and re-positioned. Hypotensive and levophed was started.
--- NOTE | 2020-02-20 18:50 | NUR ---
Incontinent of large loose brown stool , christy anal are slightly reddened. On turning additional stool leakage. FMS inserted and inflated to 45ml. christy care given. barrier ointment applied.
[2020-02-21] VITALS (18 sets, daily range): BP systolic 84–1102; BP diastolic 46–62
--- NOTE | 2020-02-21 03:40 | NUR ---
MEDICATED WITH TYLENOL PER PRN ORDER FOR TEMP 101.1(R).
[2020-02-21 06:09] LABS: ALBUMIN 2.2 gm/dl (3.1-4.5); CHLORIDE 106 mmol/L (98-107); CREATININE 0.94 mg/dL (0.55-1.02); LDH 265 U/L (84-246); SGOT/AST 23 IU/L (3-35); SGPT/ALT 41 U/L (12-78); SODIUM 140 mmol/L (136-145); TOTAL PROTEIN 6.3 gm/dL (6.4-8.2)
[2020-02-21 06:10] LABS: ALKALINE PHOSPHATASE 82 U/L (45-117); HEMATOCRIT 30.9 % (37.0-47.0); MEAN CELL VOLUME 89.8 fl (81.0-99.0); MEAN CORPUSCULAR HGB 28.8 pg (27.0-31.0); NUCLEATED RED BLOOD CELL 0.2 % (0.0-0.0); PLATELET COUNT AUTOMATED 383 10*3/uL (130-400); RED BLOOD COUNT 3.44 10*6/uL (4.10-5.10); RED CELL DISTRI WIDTH 13.5 % (0-14.5); WHITE BLOOD COUNT 18.8 10*3/uL (4.8-10.8)
[2020-02-21 06:12] LABS: BUN 53 mg/dl (7-24); CPK 42 U/L (26-192); POTASSIUM 3.6 mmol/L (3.5-5.1)
--- NOTE | 2020-02-21 06:23 | NUR ---
DR WALKER NOTIFIED OF LACTIC ACID 2.2.
[2020-02-21 06:38] LABS: ACT PARTIAL THROMBO TIME 45.7 SECONDS (20.0-32.1)
[2020-02-21 07:20] LABS: PLATELET SUFFICIENCY NORMAL (NORMAL); TOTAL CELLS COUNTED 100 #CELLS
[2020-02-21 08:03] LABS: ABG BASE EXCESS 4.5 mmol/L (-2.0-2.0); ARTERIAL BLOOD GAS PH 7.529 (7.35-7.45)
--- NOTE | 2020-02-21 08:25 | NUR ---
Eyes open spontaneously , when asked squeezed hand weakly. tracks staff w/ eyes. NGT secure , Placement check w/ air bolus. ETT secure 25 at lip level. Oral care and suctioning per RT. MLC to RIJ dressing is secure. Abdomen is soft w/ active peristalsis, FMS is intact and secure draining brown liquid stool. Armendariz cath is secure draining claudia urine. Soft restraints remain in place to prevent extubation . SCD and tubi behavior analyst are functioning properly to BLE. Pt. was repositioned to left.
--- NOTE | 2020-02-21 08:33 | NUR ---
Patients demographic sheet was faxed to [facility] (In network with [facility]). As of this morning, [facility] is still waiting for insurance verification and benefits check.
--- NOTE | 2020-02-21 08:58 | NUR ---
[facility] is stating that [place] is closed today 02/21/2020 and tomorrow 02/22/2020. He will not be able to check benefits or start a precert until Tuesday02/25/2020.
[2020-02-21 11:11] LABS: ACID FAST SPEC PROCESSING Concentration (.)
[2020-02-21 15:13] LABS: ABG BASE EXCESS 4.8 mmol/L (-2.0-2.0); ARTERIAL BLOOD GAS PH 7.542 (7.35-7.45)
--- NOTE | 2020-02-21 20:03 | NUR ---
IV HALDOL GIVEN TO PT PER ORDER FOR INCREASED AGITATION. WILL CONTINUE TO MONITOR PT.
[2020-02-21 20:25] LABS: ABG BASE EXCESS 3.7 mmol/L (-2.0-2.0); ARTERIAL BLOOD GAS PH 7.547 (7.35-7.45)
--- NOTE | 2020-02-21 20:40 | NUR ---
PT RESTING. EARLIER HALSOL EFFECTIVE.
[2020-02-22] VITALS: BP 112/61
--- NOTE | 2020-02-22 01:31 | NUR ---
MEDICATED PT PER ROUTINE ORDER WITH MORPHINE.
--- NOTE | 2020-02-22 02:21 | NUR ---
PT REMAINS AWAKE AND ALERT. PT DENIES COMPLAINTS. NO ACUTE DISTRESS NOTED AT THIS TIME. WILL CONTINUE TO MONITOR PT.
[2020-02-22 04:00] VITALS: BP 115/56
--- NOTE | 2020-02-22 05:42 | NUR ---
COMPLETE BED BATH GIVEN. VSS.
[2020-02-22 05:58] LABS: BASO % 0.2 % (0.0-1.0); EOS % 0.3 % (1.0-4.0); HEMATOCRIT 30.6 % (37.0-47.0); LYMPH # 2.3 10*3/uL (1.3-4.4); LYMPH % 18.1 % (27.0-41.0); MEAN CELL VOLUME 90.3 fl (81.0-99.0); MEAN CORPUSCULAR HGB 28.3 pg (27.0-31.0); MEAN CORPUSCULAR HGB CONC 31.4 g/dl (33.0-37.0); MEAN PLATELET VOLUME 10.5 fl (9.6-12.3); MONO # 1.5 10*3/uL (0.1-1.0); MONO % 11.9 % (3.0-9.0); NEUT # 8.4 10*3/uL (2.3-7.9); NEUT % 66.2 % (47.0-73.0); PLATELET COUNT AUTOMATED 321 10*3/uL (130-400); RED BLOOD COUNT 3.39 10*6/uL (4.10-5.10); RED CELL DISTRI WIDTH 13.1 % (0-14.5); WHITE BLOOD COUNT 12.7 10*3/uL (4.8-10.8)
[2020-02-22 05:59] LABS: CHLORIDE 109 mmol/L (98-107); POTASSIUM 3.9 mmol/L (3.5-5.1); SGOT/AST 36 IU/L (3-35); SGPT/ALT 57 U/L (12-78); SODIUM 143 mmol/L (136-145)
[2020-02-22 06:06] LABS: ALBUMIN 2.5 gm/dl (3.1-4.5); ALKALINE PHOSPHATASE 75 U/L (45-117); CREATININE 0.58 mg/dL (0.55-1.02); LDH 275 U/L (84-246); TOTAL PROTEIN 6.3 gm/dL (6.4-8.2)
[2020-02-22 06:21] LABS: CPK 48 U/L (26-192)
[2020-02-22 06:22] LABS: BUN 43 mg/dl (7-24)
[2020-02-22 06:44] LABS: ACT PARTIAL THROMBO TIME 46.1 SECONDS (20.0-32.1)
[2020-02-22 07:53] LABS: TOTAL CELLS COUNTED 100 #CELLS
[2020-02-22 07:54] LABS: PLATELET SUFFICIENCY NORMAL (NORMAL)
[2020-02-22 08:00] VITALS: BP 107/58
[2020-02-22 08:08] LABS: ABG BASE EXCESS 3.2 mmol/L (-2.0-2.0); ARTERIAL BLOOD GAS PH 7.435 (7.35-7.45)
--- NOTE | 2020-02-22 11:55 | NUR ---
DR TREVIZO HERE TO SEE CLIENT
[2020-02-22 12:00] VITALS: BP 121/55
[2020-02-22 12:17] LABS: ABG BASE EXCESS 2.7 mmol/L (-2.0-2.0); ARTERIAL BLOOD GAS PH 7.442 (7.35-7.45)
[2020-02-22 15:38] LABS: ABG BASE EXCESS 2.3 mmol/L (-2.0-2.0); ARTERIAL BLOOD GAS PH 7.448 (7.35-7.45)
[2020-02-22 16:00] VITALS: BP 136/62
--- NOTE | 2020-02-22 17:32 | NUR ---
AWAKE THIS SHIFT. TRYING TO TALK. REQUESTING ORAL SUCTIONING WITH MINIMAL SECRETIONS TO SUCTION. REPOSITONED Q2H AND PRN. PERIFERAL EDEMA NOTED. ENCOURAGED CLIENT TO MOVE HANDS AND LEGS. ROM DONE ON LOWER EXTREMETIES. CLIENT ORIENTED TO SELF AND PLACE BUT UNABLE TO REMEMBER DATE . REMINDED MULTIPLE TIMES IT IS ABBEY AND SHE IS UNABLE TO REMEMBER. TOLERATING TF WELL. HEPARIN GTT TITRATED PER ORDERS. WILL CONTINUE TO MONITOR
[2020-02-22 20:00] VITALS: BP 131/61
--- NOTE | 2020-02-22 20:00 | NUR ---
Patient awake and alert, responds appropriately to questions asked. No signs of distress. All vital signs stable at this time. Will continue to monitor.
--- NOTE | 2020-02-22 21:51 | NUR ---
24 HR chart check completed.
[2020-02-23] VITALS: BP 128/58
[2020-02-23 04:01] VITALS: BP 135/62
[2020-02-23 06:14] LABS: HEMATOCRIT 28.5 % (37.0-47.0); MEAN CELL VOLUME 90.2 fl (81.0-99.0); MEAN CORPUSCULAR HGB 28.8 pg (27.0-31.0); MEAN CORPUSCULAR HGB CONC 31.9 g/dl (33.0-37.0); MEAN PLATELET VOLUME 10.2 fl (9.6-12.3); PLATELET COUNT AUTOMATED 309 10*3/uL (130-400); RED BLOOD COUNT 3.16 10*6/uL (4.10-5.10); RED CELL DISTRI WIDTH 12.8 % (0-14.5); WHITE BLOOD COUNT 12.5 10*3/uL (4.8-10.8)
[2020-02-23 06:27] LABS: ALBUMIN 2.3 gm/dl (3.1-4.5); ALKALINE PHOSPHATASE 80 U/L (45-117); BUN 39 mg/dl (7-24); CPK 34 U/L (26-192); CREATININE 0.48 mg/dL (0.55-1.02); LDH 223 U/L (84-246); SGOT/AST 23 IU/L (3-35); SGPT/ALT 53 U/L (12-78); TOTAL PROTEIN 5.8 gm/dL (6.4-8.2)
[2020-02-23 06:53] LABS: CHLORIDE 110 mmol/L (98-107); SODIUM 144 mmol/L (136-145)
[2020-02-23 07:00] LABS: POTASSIUM 6.7 mmol/L (3.5-5.1)
[2020-02-23 08:00] VITALS: BP 126/57
[2020-02-23 08:17] LABS: ABG BASE EXCESS 2.2 mmol/L (-2.0-2.0); ARTERIAL BLOOD GAS PH 7.455 (7.35-7.45)
[2020-02-23 08:21] LABS: ATYPICAL LYMPHS 1 % (0-0); PLATELET SUFFICIENCY NORMAL (NORMAL); TOTAL CELLS COUNTED 100 #CELLS
--- NOTE | 2020-02-23 11:54 | NUR ---
ROUTINE MORPHINE GIVEN PER ORDERS WHILE INTUBATED. PT ALERT & FOLLOWING COMMANDS..NO SEDATION IN USE
[2020-02-23 12:00] VITALS: BP 101/52
--- NOTE | 2020-02-23 15:30 | NUR ---
PEEP DECREASED TO +12 ABGS ORDERED IN 2 HOURS.
--- NOTE | 2020-02-23 15:45 | NUR ---
daughter upddated on weaning process per dr reyna
[2020-02-23 16:00] VITALS: BP 98/51
[2020-02-23 17:24] LABS: ABG BASE EXCESS 1.6 mmol/L (-2.0-2.0); ARTERIAL BLOOD GAS PH 7.439 (7.35-7.45)
--- NOTE | 2020-02-23 17:46 | NUR ---
PEEP DECREASED TO +10 ABGS ORDERED IN 2 HOURS.
[2020-02-23 20:00] VITALS: BP 110/54
[2020-02-23 20:17] LABS: ARTERIAL BLOOD GAS PH 7.445 (7.35-7.45)
--- NOTE | 2020-02-23 20:38 | NUR ---
PT. RESTING IN BED WATCHING TV, SEDATION REMAINS OFF. PULSE OX 95% ON 25% FIO2 ON VENTILATOR. LUNGS DIMINISHED BILAT. ABDOMEN SOFT, NONDISTENDED AND NORMO. GENERALIZED ANASARCA NOTED. RECTAL TUBE DRAINING A BROWN LIQUID BM. GLYNN CATHETER DRAINING A CLEAR YELLOW URINE. RIGHT ARTERIAL LINE LEVELED, ZEROED AND FLUSHED PER POLICY. PT. FOLEYS COMMANDS AND SWITCHES WEIGHT BEARING POINTS BUT IS REFUSING TO TURN CURRENTLY. HEPARIN DRIP INFUSING ORDERED, SITE IN LA PICC ASYMPT. RIGHT NG NARE HAS PULMOCARE TUBE FEEDING INFUSING ORDERED, 30CC'S RESIDUAL NOTED. FREE WATER GIVEN ORDERED. PT. CONTINUES TO FOLLOW COMMANDS AND SMILES AND NODS APPROPRIATELY. ELENA GAMBINO RN
[2020-02-24] VITALS: BP 99/45
--- NOTE | 2020-02-24 01:09 | NUR ---
PT. GIVEN BED BATH AND BED LINENS CHANGED, TOLERATED WELL. ELENA GAMBINO RN
[2020-02-24 04:00] VITALS: BP 121/54
[2020-02-24 06:03] LABS: HEMATOCRIT 29.6 % (37.0-47.0); MEAN CELL VOLUME 90.2 fl (81.0-99.0); MEAN CORPUSCULAR HGB 28.7 pg (27.0-31.0); MEAN CORPUSCULAR HGB CONC 31.8 g/dl (33.0-37.0); MEAN PLATELET VOLUME 10.6 fl (9.6-12.3); NUCLEATED RED BLOOD CELL 0.2 % (0.0-0.0); PLATELET COUNT AUTOMATED 326 10*3/uL (130-400); RED BLOOD COUNT 3.28 10*6/uL (4.10-5.10); RED CELL DISTRI WIDTH 13.2 % (0-14.5); WHITE BLOOD COUNT 12.5 10*3/uL (4.8-10.8)
[2020-02-24 06:47] LABS: ACT PARTIAL THROMBO TIME 41.3 SECONDS (20.0-32.1)
[2020-02-24 07:06] LABS: CREATININE 0.59 mg/dL (0.55-1.02)
[2020-02-24 08:00] VITALS: BP 144/67
[2020-02-24 08:55] LABS: BASOPHILS 1 % (0-1); PLATELET SUFFICIENCY NORMAL (NORMAL); TOTAL CELLS COUNTED 100 #CELLS
[2020-02-24 09:02] LABS: ABG BASE EXCESS 2.1 mmol/L (-2.0-2.0); ARTERIAL BLOOD GAS PH 7.458 (7.35-7.45)
[2020-02-24 09:15] LABS: ALBUMIN 2.5 gm/dl (3.1-4.5); ALKALINE PHOSPHATASE 95 U/L (45-117); BUN 39 mg/dl (7-24); CHLORIDE 108 mmol/L (98-107); CREATININE 0.55 mg/dL (0.55-1.02); POTASSIUM 4.3 mmol/L (3.5-5.1); SGOT/AST 33 IU/L (3-35); SGPT/ALT 64 U/L (12-78); SODIUM 141 mmol/L (136-145); TOTAL PROTEIN 6.1 gm/dL (6.4-8.2)
[2020-02-24 12:00] VITALS: BP 118/58
[2020-02-24 16:00] VITALS: BP 133/64
[2020-02-24 17:02] LABS: ABG BASE EXCESS 2.3 mmol/L (-2.0-2.0); ARTERIAL BLOOD GAS PH 7.472 (7.35-7.45)
--- NOTE | 2020-02-24 17:55 | NUR ---
ABG RESULTS CALLED TO DR CHOU DECREASE CPAP WEAN TO 15/8 ABGS IN 2 HOURS
[2020-02-24 20:00] VITALS: BP 113/52
--- NOTE | 2020-02-24 21:14 | NUR ---
PT. RESTING COMFORTABLE WATCHING TV. REMAINS ON CPAP. LEFT ARM PICC ASYMPT LUNGS DIMINISHED BILAT. ABDOMEN SOFTLY DISTENDED AND ;NORMO. RECTAL TUBE DRAINING A BROWN LIQUID BM. NG VIA RIGHT NARE HAS PULMOCARE TUBE FEEDINGS AT 50CC'S /HR, 30CC'S RESIDUAL NOTED. PT. NODS APPROPRIATELY IN RESPONSE TO QUESTIONS. ART LINE LEVELED, ZEROED AND FLUSHED PER POLICY. PT. REFUSING REPOSITIONING AT THIS TIME.
[2020-02-24 21:22] LABS: ABG BASE EXCESS 2.2 mmol/L (-2.0-2.0); ARTERIAL BLOOD GAS PH 7.454 (7.35-7.45)
[2020-02-25] VITALS: BP 115/52
--- NOTE | 2020-02-25 00:10 | NUR ---
ENCOURAGING CLIENT TO DEEP BREATH OFTEN SHE CAN. OFFERED TO REPOSITIONED AND SHE DECLINED. HOB UP. TOLERATING TF WELL WITH NO RESIDUAL. H2O FLUSHES PER ORDERS. DECREASE IN LIQUID STOOL NOTED. GLYNN PATENT WITH BLANCA URINE. WILL CONTINUE TO PROVIDE EMOTIONAL SUPPORT.
--- NOTE | 2020-02-25 01:02 | NUR ---
SHYAM CARE AND REPOSITIONING COMPLETED.
[2020-02-25 04:00] VITALS: BP 122/50
[2020-02-25 04:57] LABS: MEAN CELL VOLUME 90.9 fl (81.0-99.0); MEAN CORPUSCULAR HGB 28.5 pg (27.0-31.0); MEAN CORPUSCULAR HGB CONC 31.4 g/dl (33.0-37.0); NUCLEATED RED BLOOD CELL 0.3 % (0.0-0.0); PLATELET COUNT AUTOMATED 328 10*3/uL (130-400); RED BLOOD COUNT 3.19 10*6/uL (4.10-5.10); RED CELL DISTRI WIDTH 13.4 % (0-14.5); WHITE BLOOD COUNT 12.5 10*3/uL (4.8-10.8)
[2020-02-25 05:14] LABS: ALBUMIN 2.3 gm/dl (3.1-4.5); ALKALINE PHOSPHATASE 90 U/L (45-117); BUN 31 mg/dl (7-24); CHLORIDE 109 mmol/L (98-107); CREATININE 0.47 mg/dL (0.55-1.02); POTASSIUM 4.1 mmol/L (3.5-5.1); SGOT/AST 22 IU/L (3-35); SGPT/ALT 59 U/L (12-78); SODIUM 142 mmol/L (136-145); TOTAL PROTEIN 5.8 gm/dL (6.4-8.2)
[2020-02-25 05:33] LABS: BASOPHILS 1 % (0-1); OVALOCYTES FEW; TOTAL CELLS COUNTED 100 #CELLS
[2020-02-25 05:34] LABS: PLATELET SUFFICIENCY NORMAL (NORMAL); TARGET CELLS FEW
[2020-02-25 08:00] VITALS: BP 115/51
[2020-02-25 08:21] LABS: ABG BASE EXCESS 1.9 mmol/L (-2.0-2.0); ARTERIAL BLOOD GAS PH 7.44 (7.35-7.45)
--- NOTE | 2020-02-25 11:06 | NUR ---
0800 oPENS EYES spontaneously. Appropriate response. Oral care given and face washed. ETT secure . ETT secure . NGT secure. Repositioned. 1000 Vent alarm , ETT noted to be out into pt. mouth. Deflated cuff and removed tube. NGT remains secure. Soft restraint eremoved. Pt. placed to 2l NC.
[2020-02-25 11:56] VITALS: BP 113/52
[2020-02-25 14:56] LABS: ABG BASE EXCESS 2.3 mmol/L (-2.0-2.0); ARTERIAL BLOOD GAS PH 7.457 (7.35-7.45)
[2020-02-25 16:00] VITALS: BP 108/49
[2020-02-25 20:00] VITALS: BP 118/47
--- NOTE | 2020-02-25 20:19 | NUR ---
PT. RESTING COMFORTABLY, WATCHING TV. NG - PULMOCARE TF INFUSING ORDERED, PLACEMENT CONFIRMED WITH AIR BOLUS AND NO RESIDUAL WAS NOTED. LUNGS DIMINISHED BILAT, PULSE OX 97% ON 2L NC. ABDOMEN SOFTLY DISTENDED, OBESE. GENERALIZED ANASARCA NOTED. GLYNN DRAINING A CLEAR YELLOW URINE AND FMS DRAINING A BROWN LIQUID BM. PT FOLLOWS COMMANDS AND DENIES PAIN OR DISCOMFORT. ELENA GAMBINO RN
--- NOTE | 2020-02-25 20:56 | NUR ---
PT. GIVEN BED BATH AND BED LINENS CHANGED, TOLERATED WELL. ELENA GAMBINO RN
[2020-02-26] VITALS: BP 103/50
[2020-02-26 04:00] VITALS: BP 100/49
[2020-02-26 06:21] LABS: BASO % 0.2 % (0.0-1.0); EOS # 0.2 10*3/uL (0.0-0.4); EOS % 1.2 % (1.0-4.0); HEMATOCRIT 28.6 % (37.0-47.0); LYMPH # 2.1 10*3/uL (1.3-4.4); LYMPH % 15.9 % (27.0-41.0); MEAN CELL VOLUME 90.5 fl (81.0-99.0); MEAN CORPUSCULAR HGB 28.8 pg (27.0-31.0); MEAN CORPUSCULAR HGB CONC 31.8 g/dl (33.0-37.0); MONO # 1.5 10*3/uL (0.1-1.0); MONO % 11.4 % (3.0-9.0); NEUT % 69.2 % (47.0-73.0); NUCLEATED RED BLOOD CELL 0.3 % (0.0-0.0); PLATELET COUNT AUTOMATED 316 10*3/uL (130-400); RED BLOOD COUNT 3.16 10*6/uL (4.10-5.10); RED CELL DISTRI WIDTH 13.5 % (0-14.5)
[2020-02-26 06:29] LABS: ALBUMIN 2.3 gm/dl (3.1-4.5); ALKALINE PHOSPHATASE 102 U/L (45-117); BUN 25 mg/dl (7-24); CHLORIDE 104 mmol/L (98-107); CREATININE 0.43 mg/dL (0.55-1.02); POTASSIUM 4.1 mmol/L (3.5-5.1); SGOT/AST 17 IU/L (3-35); SGPT/ALT 54 U/L (12-78); SODIUM 138 mmol/L (136-145); TOTAL PROTEIN 5.7 gm/dL (6.4-8.2)
--- NOTE | 2020-02-26 07:53 | NUR ---
Patient extubated and now on 2 liters NC. No longer qualifies for [facility]. Will discuss snf placement with patient.
--- NOTE | 2020-02-26 07:57 | NUR ---
Shift chart check completed.24 HR chart check completed.
[2020-02-26 08:00] VITALS: BP 115/54
--- NOTE | 2020-02-26 10:57 | NUR ---
SPEECH PATHOLOGY Pt seen at bedside this AM per orders. This CARPENTER MOLD ID'd pt verbally and via wristband. Pt alert and responding appropriately throughout sessions, seated upright at 90 degrees on 2L O2 via NC. This CARPENTER MOLD completed CN exam prior to providing PO trials; cross tie maker appear grossly intact. This CARPENTER MOLD provided pt with a variety of PO trials including thin water per straw, applesauce, and chiquis cracker. Pt consumed 3 oz water per straw without s/s, indicating low risk of aspiration. Clear post-prandial vocal quality also noted. Trialed regular textures (chiquis cracker) with pt presenting with mildly prolonged mastication and min oral residue. Pt c/o of odynophagia with regular textures, likely secondary to prolonged intubation. Pt also c/o of regular textures being too dry, resulting in cough x2. Swallow of pureed textures functional at bedside. Full report to follow. RECOMMENDATIONS: MECHANICAL SOFT DIET/THIN LIQUIDS -PT SHOULD REMAIN SEATED UPRIGHT FOR ALL MEALS -SLOW RATE OF INTAKE -SMALL BITES/SIPS -ALTERNATE LIQUIDS/SOLIDS TO PROMOTE ORAL CLEARANCE This CARPENTER MOLD made pt and RN aware of recommendations. All parties verbalized understanding. Recommend tx to facilitate advancement to regular textures. Thank you for this referral. JUDY PARISH M.A. [facility]
[2020-02-26 12:00] VITALS: BP 109/58
--- NOTE | 2020-02-26 12:01 | NUR ---
DR CHOU HAS VISITED. REVIEW OF ORDERS.
--- NOTE | 2020-02-26 12:15 | NUR ---
Occupational Therapy evaluation completed on [facility] with full evaluation to follow. Recommend occupational therapy per plan of care and SNF upon discharge. Thank you for this referral. Hortensia Doyle OTR/L
--- NOTE | 2020-02-26 12:57 | NUR ---
OUT OF BED TO CHAIR WITH PT/OT. FECAL MANAGEMENT SYSTEM REMOVED. ARTERIAL LINE REMOVED RT BRACHIAL. DIGITAL PRESSURE X 5 MINUTES AND PRESSURE DRESSING APPLIED.
--- NOTE | 2020-02-26 13:23 | NUR ---
PHYSICAL THERAPY Physical therapy evaluation completed. Full details and evaluation to follow. High complexity skilled PT evaluaion performed [id number]. PT will work on strength, balance, bed mobility, transfers, gait, AD usage and safety per POC. Recommend SNF at discharge. Betty Wagner PT DPT
--- NOTE | 2020-02-26 13:26 | NUR ---
DR TREVIZO UPDATED THAT PER DR CHOU PT COULD GO TO TELEMETRY.
--- NOTE | 2020-02-26 13:55 | NUR ---
EATING WELL, FEEDING HERSELF. NGT REMOVED.
[2020-02-26 16:00] VITALS: BP 100/58
--- NOTE | 2020-02-26 17:24 | NUR ---
LAPEL STITCHER AWARE PT IS NOW A TELEMETRY PATEINT.
--- NOTE | 2020-02-26 17:38 | NUR ---
GLYNN WAS CLAMPED FOR 4 HOURS. WHEN PT QUESTIONED SHE SAID "YES" SHE NEEDED TO URINATE. UNCLAMPED AND DRAINED >150ML. SHE'S EATING FISH AND BAKED POTATO WITHOUT DIFFICULTY. PT WILL BE TRANSFERRED TO [facility].
--- NOTE | 2020-02-26 18:22 | NUR ---
TRANSFERRED IN STABLE CONDITION WITH HER BELONGINGS TO [facility].
[2020-02-26 20:00] VITALS: BP 104/63
--- NOTE | 2020-02-26 20:33 | NUR ---
VOICE HOARSE. ORIENTED TO SELF AND PLACE. FACETIMING WITH FAMILY
--- NOTE | 2020-02-26 23:53 | NUR ---
HIREN HELD BSG 78 AND DECREASED INTAKE TODAY
[2020-02-27] VITALS: BP 104/56; BP 105/56
--- NOTE | 2020-02-27 06:15 | NUR ---
ISSUES WITH SHORT TERM MEMORY REMAIN UNCHAINED. DOES TRY TO COVER FOR DEFICITS WITH JOKES.
[2020-02-27 06:30] LABS: BASO # 0.1 10*3/uL (0.0-0.1); BASO % 0.4 % (0.0-1.0); EOS # 0.2 10*3/uL (0.0-0.4); EOS % 1.5 % (1.0-4.0); HEMATOCRIT 30.4 % (37.0-47.0); LYMPH # 2.5 10*3/uL (1.3-4.4); LYMPH % 21.8 % (27.0-41.0); MEAN CELL VOLUME 91.8 fl (81.0-99.0); MEAN CORPUSCULAR HGB 28.7 pg (27.0-31.0); MEAN CORPUSCULAR HGB CONC 31.3 g/dl (33.0-37.0); MEAN PLATELET VOLUME 9.5 fl (9.6-12.3); MONO # 1.4 10*3/uL (0.1-1.0); MONO % 12.2 % (3.0-9.0); NEUT # 7.2 10*3/uL (2.3-7.9); NEUT % 62.3 % (47.0-73.0); PLATELET COUNT AUTOMATED 306 10*3/uL (130-400); RED BLOOD COUNT 3.31 10*6/uL (4.10-5.10); RED CELL DISTRI WIDTH 13.9 % (0-14.5); WHITE BLOOD COUNT 11.5 10*3/uL (4.8-10.8)
[2020-02-27 06:58] LABS: ALBUMIN 2.5 gm/dl (3.1-4.5); BUN 22 mg/dl (7-24); CHLORIDE 104 mmol/L (98-107); LDH 263 U/L (84-246); SGOT/AST 22 IU/L (3-35); SGPT/ALT 50 U/L (12-78); SODIUM 138 mmol/L (136-145); TOTAL PROTEIN 6.1 gm/dL (6.4-8.2)
[2020-02-27 06:59] LABS: ALKALINE PHOSPHATASE 91 U/L (45-117)
[2020-02-27 08:00] VITALS: BP 126/82
--- NOTE | 2020-02-27 08:07 | NUR ---
Attempted to contact daughter Adelina, went straight to voicemail. Attempted to contact , unable to contact, left voicemail. Attempted to contact patient, unable to contact.
--- NOTE | 2020-02-27 08:51 | NUR ---
Spoke with who stated he still wants patient to come home even though therapy recommends snf. He and his daughter will be providing 24 hour care; they've asked for [facility] N/PT/OT/Aides, oxygen for home, bed side commode, front wheeled walker. Jesus stating they will bring oxygen tank today and deliver the other equipment tomorrow. notified unable to obtain shower chair he will need to purchase it separately. Notified Dr. Mckeon
--- NOTE | 2020-02-27 10:24 | NUR ---
OT NOTE Pt was seen this A.M. 1:1 for 20 minute OT session. Upon arrival pt was sitting upright on the bedside commode. Pt identified by name and and had complaints of generalized weakness and fatigue. Pt presented with continuous 2L-O2 via NC which she remained on throughout the entire session. Sit to stand completed from bedside commode with Juan X 2 and use of w/w for UE support. Pt then completed standing pivot from the bedside commode to the recliner with CGA and use of w/w. Throughout transfer pt's SpO2 dropped to 87% and within aprox 30 seconds SpO2 raised to 92%. Pt reported feeling very fatigued after the transfer and requested to rest. Pt was left sitting upright in the recliner with call light in hand, tray table in place, and phone in reach. Throughout entire session airborne precautions were maintained. Continue with rec D/C plan to SNF. LISA Gambino/Nicolle
--- NOTE | 2020-02-27 11:28 | NUR ---
SPEECH PATHOLOGY Pt seen this AM at breakfast for tx session targeting ongoing therapeutic diet texture analysis and pt/caregiver education. This THREADING MACHINE TENDER ID'd pt via wristband. Pt seated at 90 degrees for PO intake. Pt reported poor appetite this date, but did accept a small bite of mechanical soft textures (pancakes with syrup) and regular textures (chiquis crackers). Pt presented with prolonged mastication of regular textures; however, swallow ultimately appeared functional with no pocketing/no significant oral residue. Pt also consumed thin liquids per straw, (I) utilizing slow rate of intake. No s/s with thin liquids or solids. Pt perseverating on using the bedside commode; RN came and assisted the pt.Recommend pt continue on soft diet at this time with future sessions to target advancement to regular. This THREADING MACHINE TENDER educated RNLeny, on diet recommendations. Tx time this date was 20 minutes. Thank you. JUDY PARISH M.A. [facility]THREADING MACHINE TENDER
[2020-02-27 12:00] VITALS: BP 107/55
--- NOTE | 2020-02-27 12:20 | NUR ---
Faxed scripts for 02 and equipment to [facility]; oxygen tank is being delivered to patients room today; equipment delivery tomorrow to patients home. notified of DC today, he will transport patient home. Also faxed order/F2F/clinicals to [facility].
--- NOTE | 2020-02-27 12:42 | NUR ---
PHYSICAL THERAPY Patient presented to therapy sitting on bedside commode and report of tiredness. Patient is on 2 liters of spO2 VIA NASAL CANULA. Patient gives informed consent for treatment. Patient was identified by name and on wristband. Patient performed STS from BEDSIDE COMMODE with MIN A X 1 and verbal cues for pushing off the commode handles. Patient ambulated with Wh Walker and CGA for 5' x 1 to low chair with no LOB. Patient sat in low chair with CGA and verbal cues for putting hands back on armrests of chair. Patient was left in bedside chair with call light within reach and LEs in low position. Tray table in front of patient. Patient was 1:1 with this MANAGER DRUG SAFETY for 15 minutes total. [place] MANAGER DRUG SAFETY
--- NOTE | 2020-02-27 13:16 | NUR ---
PT ASSESSED FOR HOME OXYGEN. PT QUALIFIES FOR 2LNC PT AT REST SPO2 80% RA PLACED PT ON 2LNC SPO2 90% 2LNC PT AMBULATED A FEW STEPS SPO2 93% ON 2LNC PT UNABLE TO WALK TO FAR VERY WEAK PT AT REST SPO2 95% 2LNC, HR 100, RR 20, B/P 108/62. RN NOTIFIED AND NOTIFIED
--- NOTE | 2020-02-27 13:21 | NUR ---
[facility] CALLED, UPDATED ON STATUS.
[2020-02-27] MEDS ORDERED: XARELTO20 M1 PO (14:55)
--- NOTE | 2020-02-27 15:57 | NUR ---
PICC LINE REMOVED WITH EASE. 55CM IN LENGTH. SCANT BLEEDING TO SITE. PRESSURE DRESSING PLACED.
--- NOTE | 2020-02-27 15:58 | NUR ---
Discharge instructions reviewed with patient/family. Patient receptive and verbalizes understanding. Follow-up care arranged. Written instructions given to patient/family. COREY SAWYER
--- NOTE | 2020-02-28 07:18 | NUR ---
OCCUPATIONAL THERAPY CO-SIGN I approve of the Occupational Therapy notes written above. ALVIN CONDE, OTR/L
--- NOTE | 2020-02-28 07:31 | NUR ---
PHYSICAL THERAPY CO-SIGN I approve of the Phyical Therapy notes written above. Betty Wagner PT DPT
--- NOTE | 2020-02-28 12:26 | NUR ---
Pt daughter called in and states that her mom's script was never received to [facility]. States she was supposed to receive xarelto 20 mg for [address] Mckeon dc her mom yesterday. Requesting this be taken care of. States she called twice yesterday regarding this and [facility] still has no record of script. I spoke with resident Dr. Gupta regarding this and he states he will discuss with Attending Dr. Vinson.
== END 2020-02-27 16:22 | disposition home health service (06) | DRG 207 ==
LOC: ED 14:51 → ICCU 17:43 → EDHOLD 17:43 → ICCU 02-12 10:23 → 4E 02-26 17:45
PROVIDERS: Emergency Medicine; Hospitalist; Internal Medicine Cardiovascular Disease; Internal Medicine Critical Care Medicine; Social Worker Clinical; Student in an Organized Health Care Education/Training Program; ADMIT Family Medicine; ATTEND Family Medicine
PROC: 5A09457 Assistance with Respiratory Ventilation, 24-96 Consecutive Hours, Continuous Positive Airway Pressure (ICD-10-PCS; 2020-02-11)
PROC: 5A1955Z Respiratory Ventilation, Greater than 96 Consecutive Hours (ICD-10-PCS; principal; 2020-02-13)
PROC: 0BH18EZ Insertion of Endotracheal Airway into Trachea, Via Natural or Artificial Opening Endoscopic (ICD-10-PCS; 2020-02-13)
PROC: 03HY33Z Insertion of Infusion Device into Upper Artery, Percutaneous Approach (ICD-10-PCS; 2020-02-13)
PROC: B54MZZA Ultrasonography of Right Upper Extremity Veins, Guidance (ICD-10-PCS; 2020-02-13)
PROC: 02HV33Z Insertion of Infusion Device into Superior Vena Cava, Percutaneous Approach (ICD-10-PCS; 2020-02-13)
PROC: B548ZZA Ultrasonography of Superior Vena Cava, Guidance (ICD-10-PCS; 2020-02-13)
PROC: 5A09357 Assistance with Respiratory Ventilation, Less than 24 Consecutive Hours, Continuous Positive Airway Pressure (ICD-10-PCS; 2020-02-18)
PROC: 5A1955Z Respiratory Ventilation, Greater than 96 Consecutive Hours (ICD-10-PCS; 2020-02-19)
PROC: 0B928ZZ Drainage of Carina, Via Natural or Artificial Opening Endoscopic (ICD-10-PCS; 2020-02-20)
PROC: 0B948ZZ Drainage of Right Upper Lobe Bronchus, Via Natural or Artificial Opening Endoscopic (ICD-10-PCS; 2020-02-20)
PROC: 0B988ZZ Drainage of Left Upper Lobe Bronchus, Via Natural or Artificial Opening Endoscopic (ICD-10-PCS; 2020-02-20)
PROC: 0B918ZZ Drainage of Trachea, Via Natural or Artificial Opening Endoscopic (ICD-10-PCS; 2020-02-20)
PROC: 0B958ZZ Drainage of Right Middle Lobe Bronchus, Via Natural or Artificial Opening Endoscopic (ICD-10-PCS; 2020-02-20)
PROC: 0B938ZZ Drainage of Right Main Bronchus, Via Natural or Artificial Opening Endoscopic (ICD-10-PCS; 2020-02-20)
PROC: 0B978ZZ Drainage of Left Main Bronchus, Via Natural or Artificial Opening Endoscopic (ICD-10-PCS; 2020-02-20)
PROC: 0B968ZZ Drainage of Right Lower Lobe Bronchus, Via Natural or Artificial Opening Endoscopic (ICD-10-PCS; 2020-02-20)
PROC: 0B9B8ZZ Drainage of Left Lower Lobe Bronchus, Via Natural or Artificial Opening Endoscopic (ICD-10-PCS; 2020-02-20)
PROC: 0B998ZZ Drainage of Lingula Bronchus, Via Natural or Artificial Opening Endoscopic (ICD-10-PCS; 2020-02-20)
PROC: XW033E5 Introduction of Remdesivir Anti-infective into Peripheral Vein, Percutaneous Approach, New Technology Group 5 (ICD-10-PCS; 2020-02-21)
PROC: 02HV33Z Insertion of Infusion Device into Superior Vena Cava, Percutaneous Approach (ICD-10-PCS; 2020-02-21)
PROC: B548ZZA Ultrasonography of Superior Vena Cava, Guidance (ICD-10-PCS; 2020-02-21)
DX: U07.1 COVID-19 (principal); E43 Unspecified severe protein-calorie malnutrition; J12.89 Other viral pneumonia; J80 Acute respiratory distress syndrome; J15.9 Unspecified bacterial pneumonia; E87.1 Hypo-osmolality and hyponatremia; E87.0 Hyperosmolality and hypernatremia; D68.59 Other primary thrombophilia; D64.9 Anemia, unspecified; E87.6 Hypokalemia; E87.8 Other disorders of electrolyte and fluid balance, not elsewhere classified; E83.41 Hypermagnesemia; I10 Essential (primary) hypertension; T38.0X5A Adverse effect of glucocorticoids and synthetic analogues, initial encounter; E03.9 Hypothyroidism, unspecified; E66.9 Obesity, unspecified; E11.65 Type 2 diabetes mellitus with hyperglycemia; E78.5 Hyperlipidemia, unspecified; D47.3 Essential (hemorrhagic) thrombocythemia; E83.39 Other disorders of phosphorus metabolism; Z68.36 Body mass index [BMI] 36.0-36.9, adult; Z79.899 Other long term (current) drug therapy; Z79.4 Long term (current) use of insulin; Y92.89 Other specified places as the place of occurrence of the external cause

== ENCOUNTER → 2020-09-08 | Outpatient (CLI) | payer BC ==
[~2020-09-08] MED LIST changes: +B-121000 MCG PO; +EUTHYROX50 MCG PO; +LIVALO2 M1 PO; +NOVOLOG MI100 UNIT/2 SQ; +RELION NOV100 UNIT/1 SQ; +XARELTO20 M1 PO; +ZESTORETIC 10-1 EACH PO
[2020-09-08 08:50] LABS: BASO # 0.1 10*3/uL (0.0-0.1); BASO % 1.1 % (0.0-1.0); EOS # 0.2 10*3/uL (0.0-0.4); EOS % 2.9 % (1.0-4.0); HEMATOCRIT 40.5 % (37.0-47.0); LYMPH # 2.7 10*3/uL (1.3-4.4); MEAN CELL VOLUME 89.4 fl (81.0-99.0); MEAN CORPUSCULAR HGB CONC 31.4 g/dl (33.0-37.0); MEAN PLATELET VOLUME 9.2 fl (9.6-12.3); MONO # 0.7 10*3/uL (0.1-1.0); MONO % 8.3 % (3.0-9.0); NEUT # 4.4 10*3/uL (2.3-7.9); NEUT % 54.2 % (47.0-73.0); PLATELET COUNT AUTOMATED 388 10*3/uL (130-400); RED BLOOD COUNT 4.53 10*6/uL (4.10-5.10); RED CELL DISTRI WIDTH 14.3 % (0-14.5)
[2020-09-08 09:13] LABS: ALBUMIN 3.5 gm/dl (3.1-4.5); BUN 16 mg/dl (7-24); CHLORIDE 103 mmol/L (98-107); CHOLESTEROL 144 mg/dL (<200); CREATININE 0.97 mg/dL (0.55-1.02); POTASSIUM 4.3 mmol/L (3.5-5.1); SGOT/AST 15 IU/L (3-35); SGPT/ALT 32 U/L (12-78); SODIUM 136 mmol/L (136-145); TOTAL PROTEIN 7.6 gm/dL (6.4-8.2); TRIGLYCERIDES 139 mg/dl (<150)
[2020-09-08 09:20] LABS: ALKALINE PHOSPHATASE 112 U/L (45-117); LDL CHOLESTEROL 70 mg/dL (9-159)
[2020-09-08 10:29] LABS: VITAMIN D, 25-HYDROXY 26.8 ng/mL (30-100)
[2020-09-09 15:07] LABS: A/G RATIO 0.9 (0.7-1.7); ALBUMIN 3.3 g/dL (2.9-4.4); ALPHA-1-GLOBULIN 0.2 g/dL (0.0-0.4); BETA GLOBULIN 1.3 g/dL (0.7-1.3); GAMMA GLOBULIN 1.2 g/dL (0.4-1.8); GLOBULIN, TOTAL 3.7 g/dL (2.2-3.9); M-SPIKE Not Observed g/dL (Not Observed); THYROGLOBULIN ANTIBODY 50.4 IU/mL (0.0-0.9)
== END | disposition home or self-care (01) ==
LOC: LAB 07:49
PROVIDERS: ATTEND Internal Medicine Endocrinology, Diabetes & Metabolism
DX: E11.65 Type 2 diabetes mellitus with hyperglycemia (principal); G63 Polyneuropathy in diseases classified elsewhere; E03.4 Atrophy of thyroid (acquired); I89.0 Lymphedema, not elsewhere classified; E55.9 Vitamin D deficiency, unspecified; E53.8 Deficiency of other specified B group vitamins

== ENCOUNTER → 2020-10-27 | Outpatient (CLI) | payer BC | END | disposition home or self-care (01) | LOC: MAMMO 13:06 | PROVIDERS: ATTEND Obstetrics & Gynecology | DX: Z12.31 Encounter for screening mammogram for malignant neoplasm of breast (principal); N64.89 Other specified disorders of breast ==

== ENCOUNTER → 2020-12-18 | Outpatient (CLI) | payer BC ==
[2020-12-18 09:00] LABS: BASO # 0.1 10*3/uL (0.0-0.1); BASO % 1.2 % (0.0-1.0); EOS # 0.3 10*3/uL (0.0-0.4); EOS % 3.3 % (1.0-4.0); HEMATOCRIT 39.4 % (37.0-47.0); LYMPH # 2.4 10*3/uL (1.3-4.4); LYMPH % 31.6 % (27.0-41.0); MEAN CELL VOLUME 92.3 fl (81.0-99.0); MEAN CORPUSCULAR HGB CONC 31.5 g/dl (33.0-37.0); MEAN PLATELET VOLUME 8.8 fl (9.6-12.3); MONO # 0.8 10*3/uL (0.1-1.0); MONO % 9.9 % (3.0-9.0); NEUT # 4.1 10*3/uL (2.3-7.9); NEUT % 53.7 % (47.0-73.0); PLATELET COUNT AUTOMATED 334 10*3/uL (130-400); RED BLOOD COUNT 4.27 10*6/uL (4.10-5.10); RED CELL DISTRI WIDTH 13.2 % (0-14.5); WHITE BLOOD COUNT 7.6 10*3/uL (4.8-10.8)
[2020-12-18 09:14] LABS: BUN 19 mg/dl (7-24); CHLORIDE 107 mmol/L (98-107); CHOLESTEROL 135 mg/dL (<200); CREATININE 0.89 mg/dL (0.55-1.02); POTASSIUM 4.5 mmol/L (3.5-5.1); SGPT/ALT 31 U/L (12-78); SODIUM 141 mmol/L (136-145); TRIGLYCERIDES 163 mg/dl (<150)
[2020-12-18 09:28] LABS: FREE T4 1.04 ng/dl (0.76-1.46); LDL CHOLESTEROL 55 mg/dL (9-159)
== END | disposition home or self-care (01) ==
LOC: LAB 08:43
PROVIDERS: ATTEND Internal Medicine Endocrinology, Diabetes & Metabolism
DX: E11.65 Type 2 diabetes mellitus with hyperglycemia (principal); G63 Polyneuropathy in diseases classified elsewhere; E03.4 Atrophy of thyroid (acquired); I89.0 Lymphedema, not elsewhere classified; M54.59 Other low back pain

== ENCOUNTER → 2021-04-01 | Outpatient (CLI) | payer BC ==
[2021-04-01 09:17] LABS: BASO # 0.1 10*3/uL (0.0-0.1); EOS # 0.3 10*3/uL (0.0-0.4); HEMATOCRIT 40.3 % (37.0-47.0); LYMPH # 2.8 10*3/uL (1.3-4.4); LYMPH % 41.2 % (27.0-41.0); MEAN CELL VOLUME 90.4 fl (81.0-99.0); MEAN CORPUSCULAR HGB 28.9 pg (27.0-31.0); MEAN PLATELET VOLUME 8.6 fl (9.6-12.3); MONO # 0.7 10*3/uL (0.1-1.0); MONO % 10.1 % (3.0-9.0); NEUT # 2.9 10*3/uL (2.3-7.9); NEUT % 42.4 % (47.0-73.0); PLATELET COUNT AUTOMATED 314 10*3/uL (130-400); RED BLOOD COUNT 4.46 10*6/uL (4.10-5.10); RED CELL DISTRI WIDTH 13.2 % (0-14.5); WHITE BLOOD COUNT 6.9 10*3/uL (4.8-10.8)
[2021-04-01 09:36] LABS: ALBUMIN 3.4 gm/dl (3.1-4.5); BUN 18 mg/dl (7-24); CHLORIDE 109 mmol/L (98-107); CHOLESTEROL 123 mg/dL (<200); CREATININE 0.85 mg/dL (0.55-1.02); POTASSIUM 4.3 mmol/L (3.5-5.1); SGOT/AST 10 IU/L (3-35); SGPT/ALT 24 U/L (12-78); SODIUM 139 mmol/L (136-145); TOTAL PROTEIN 7.2 gm/dL (6.4-8.2); TRIGLYCERIDES 145 mg/dl (<150)
[2021-04-01 09:42] LABS: ALKALINE PHOSPHATASE 97 U/L (45-117); FREE T4 0.99 ng/dl (0.76-1.46); LDL CHOLESTEROL 50 mg/dL (9-159)
== END | disposition home or self-care (01) ==
LOC: LAB 09:01
PROVIDERS: ATTEND Internal Medicine Endocrinology, Diabetes & Metabolism
DX: E11.65 Type 2 diabetes mellitus with hyperglycemia (principal); I89.0 Lymphedema, not elsewhere classified; E03.4 Atrophy of thyroid (acquired); M54.50 Low back pain, unspecified; G63 Polyneuropathy in diseases classified elsewhere

== ENCOUNTER → 2021-07-03 | Outpatient (CLI) | payer BC ==
[2021-07-03 08:19] LABS: BASO # 0.1 10*3/uL (0.0-0.1); BASO % 1.1 % (0.0-1.0); EOS # 0.3 10*3/uL (0.0-0.4); EOS % 3.4 % (1.0-4.0); HEMATOCRIT 40.3 % (37.0-47.0); LYMPH # 2.5 10*3/uL (1.3-4.4); LYMPH % 31.6 % (27.0-41.0); MEAN CELL VOLUME 89.2 fl (81.0-99.0); MEAN CORPUSCULAR HGB 29.4 pg (27.0-31.0); MEAN PLATELET VOLUME 8.8 fl (9.6-12.3); MONO # 0.9 10*3/uL (0.1-1.0); MONO % 10.9 % (3.0-9.0); NEUT # 4.2 10*3/uL (2.3-7.9); NEUT % 52.7 % (47.0-73.0); PLATELET COUNT AUTOMATED 352 10*3/uL (130-400); RED BLOOD COUNT 4.52 10*6/uL (4.10-5.10); RED CELL DISTRI WIDTH 13.8 % (0-14.5); WHITE BLOOD COUNT 7.9 10*3/uL (4.8-10.8)
[2021-07-03 08:59] LABS: BUN 15 mg/dl (7-24); CHLORIDE 107 mmol/L (98-107); CHOLESTEROL 118 mg/dL (<200); CREATININE 0.93 mg/dL (0.55-1.02); POTASSIUM 4.6 mmol/L (3.5-5.1); SGPT/ALT 27 U/L (12-78); SODIUM 140 mmol/L (136-145)
[2021-07-03 09:01] LABS: LDL CHOLESTEROL 51 mg/dL (9-159); TRIGLYCERIDES 109 mg/dl (<150)
== END | disposition home or self-care (01) ==
LOC: LAB 08:04
PROVIDERS: ATTEND Internal Medicine Endocrinology, Diabetes & Metabolism
DX: E11.65 Type 2 diabetes mellitus with hyperglycemia (principal); M54.50 Low back pain, unspecified; E03.4 Atrophy of thyroid (acquired); I89.0 Lymphedema, not elsewhere classified

== ENCOUNTER → 2021-10-07 | Outpatient (CLI) | payer BC ==
[2021-10-07 09:13] LABS: BASO # 0.1 10*3/uL (0.0-0.1); BASO % 0.9 % (0.0-1.0); EOS # 0.2 10*3/uL (0.0-0.4); EOS % 2.7 % (1.0-4.0); HEMATOCRIT 41.2 % (37.0-47.0); LYMPH # 2.4 10*3/uL (1.3-4.4); LYMPH % 31.8 % (27.0-41.0); MEAN CORPUSCULAR HGB 29.5 pg (27.0-31.0); MEAN CORPUSCULAR HGB CONC 32.8 g/dl (33.0-37.0); MEAN PLATELET VOLUME 8.8 fl (9.6-12.3); MONO # 0.8 10*3/uL (0.1-1.0); MONO % 10.8 % (3.0-9.0); NEUT % 53.5 % (47.0-73.0); PLATELET COUNT AUTOMATED 347 10*3/uL (130-400); RED BLOOD COUNT 4.58 10*6/uL (4.10-5.10); RED CELL DISTRI WIDTH 13.2 % (0-14.5); WHITE BLOOD COUNT 7.4 10*3/uL (4.8-10.8)
[2021-10-07 09:36] LABS: BUN 14 mg/dl (7-24); CHLORIDE 106 mmol/L (98-107); CHOLESTEROL 126 mg/dL (<200); LDL CHOLESTEROL 51 mg/dL (9-159); POTASSIUM 4.6 mmol/L (3.5-5.1); SGPT/ALT 25 U/L (12-78); SODIUM 139 mmol/L (136-145); TRIGLYCERIDES 150 mg/dl (<150)
== END | disposition home or self-care (01) ==
LOC: LAB 08:44
PROVIDERS: ATTEND Internal Medicine Endocrinology, Diabetes & Metabolism
DX: I10 Essential (primary) hypertension (principal); E11.65 Type 2 diabetes mellitus with hyperglycemia; G63 Polyneuropathy in diseases classified elsewhere; E03.4 Atrophy of thyroid (acquired); E78.00 Pure hypercholesterolemia, unspecified; I89.0 Lymphedema, not elsewhere classified; M54.50 Low back pain, unspecified

== ENCOUNTER → 2021-11-16 | Outpatient (CLI) | payer BC | END | disposition home or self-care (01) | LOC: MAMMO 07:23 | PROVIDERS: ATTEND Family Medicine | DX: Z12.31 Encounter for screening mammogram for malignant neoplasm of breast (principal); N63.11 Unspecified lump in the right breast, upper outer quadrant; N63.21 Unspecified lump in the left breast, upper outer quadrant ==

== ENCOUNTER → 2022-01-11 | Outpatient (CLI) | payer BC ==
[2022-01-11 08:53] LABS: BASO # 0.1 10*3/uL (0.0-0.1); EOS # 0.4 10*3/uL (0.0-0.4); EOS % 5.2 % (1.0-4.0); HEMATOCRIT 41.4 % (37.0-47.0); LYMPH # 2.8 10*3/uL (1.3-4.4); LYMPH % 38.3 % (27.0-41.0); MEAN CORPUSCULAR HGB 30.2 pg (27.0-31.0); MEAN CORPUSCULAR HGB CONC 32.9 g/dl (33.0-37.0); MEAN PLATELET VOLUME 8.7 fl (9.6-12.3); MONO # 0.8 10*3/uL (0.1-1.0); MONO % 11.1 % (3.0-9.0); NEUT # 3.3 10*3/uL (2.3-7.9); NEUT % 44.3 % (47.0-73.0); PLATELET COUNT AUTOMATED 330 10*3/uL (130-400); RED CELL DISTRI WIDTH 13.5 % (0-14.5); WHITE BLOOD COUNT 7.3 10*3/uL (4.8-10.8)
[2022-01-11 09:21] LABS: ALKALINE PHOSPHATASE 90 U/L (45-117); BUN 14 mg/dl (7-24); CHLORIDE 108 mmol/L (98-107); CHOLESTEROL 121 mg/dL (<200); CREATININE 0.99 mg/dL (0.55-1.02); FREE T4 0.98 ng/dl (0.76-1.46); LDL CHOLESTEROL 46 mg/dL (9-159); POTASSIUM 4.5 mmol/L (3.5-5.1); SGOT/AST 14 IU/L (3-35); SGPT/ALT 30 U/L (12-78); SODIUM 138 mmol/L (136-145); TOTAL PROTEIN 7.4 gm/dL (6.4-8.2); TRIGLYCERIDES 153 mg/dl (<150)
== END | disposition home or self-care (01) ==
LOC: LAB 08:27
PROVIDERS: ATTEND Internal Medicine Endocrinology, Diabetes & Metabolism
DX: E11.65 Type 2 diabetes mellitus with hyperglycemia (principal); I10 Essential (primary) hypertension; G63 Polyneuropathy in diseases classified elsewhere; E03.4 Atrophy of thyroid (acquired); E78.00 Pure hypercholesterolemia, unspecified; I89.0 Lymphedema, not elsewhere classified; M54.50 Low back pain, unspecified

== ENCOUNTER → 2022-07-02 | Outpatient (CLI) | payer BC | END | disposition home or self-care (01) | LOC: US 14:15 | PROVIDERS: ATTEND Orthopaedic Surgery | DX: M79.604 Pain in right leg (principal); M79.605 Pain in left leg; E11.9 Type 2 diabetes mellitus without complications ==

== ENCOUNTER → 2022-07-19 | Outpatient (CLI) | payer BC ==
[2022-07-19 09:03] LABS: BASO # 0.1 10*3/uL (0.0-0.1); BASO % 0.9 % (0.0-1.0); EOS # 0.3 10*3/uL (0.0-0.4); EOS % 3.2 % (1.0-4.0); HEMATOCRIT 39.1 % (37.0-47.0); LYMPH # 2.5 10*3/uL (1.3-4.4); MEAN CELL VOLUME 92.4 fl (81.0-99.0); MEAN CORPUSCULAR HGB 29.6 pg (27.0-31.0); MEAN PLATELET VOLUME 8.7 fl (9.6-12.3); MONO # 0.7 10*3/uL (0.1-1.0); MONO % 8.7 % (3.0-9.0); NEUT # 4.5 10*3/uL (2.3-7.9); PLATELET COUNT AUTOMATED 288 10*3/uL (130-400); RED BLOOD COUNT 4.23 10*6/uL (4.10-5.10); RED CELL DISTRI WIDTH 13.6 % (0-14.5); WHITE BLOOD COUNT 8.1 10*3/uL (4.8-10.8)
[2022-07-19 09:31] LABS: BUN 15 mg/dl (9-23); CHLORIDE 104 mmol/L (98-107); CHOLESTEROL 139 mg/dL (<200); LDL CHOLESTEROL 69 mg/dL (9-159); POTASSIUM 4.6 mmol/L (3.4-5.1); SGPT/ALT 18 U/L (10-49); THYROID STIM HORMONE (HS) 5.513 uIU/ml (0.550-4.780); TRIGLYCERIDES 117 mg/dl (<150)
== END | disposition home or self-care (01) ==
LOC: LAB 08:19
PROVIDERS: ATTEND Internal Medicine Endocrinology, Diabetes & Metabolism
DX: E11.65 Type 2 diabetes mellitus with hyperglycemia (principal); G63 Polyneuropathy in diseases classified elsewhere; I10 Essential (primary) hypertension; E78.00 Pure hypercholesterolemia, unspecified; E03.4 Atrophy of thyroid (acquired); I89.0 Lymphedema, not elsewhere classified; M54.50 Low back pain, unspecified

== ENCOUNTER → 2022-10-25 | Outpatient (CLI) | payer BC ==
[2022-10-25 08:53] LABS: BASO # 0.1 10*3/uL (0.0-0.1); EOS # 0.4 10*3/uL (0.0-0.4); EOS % 4.9 % (1.0-4.0); LYMPH # 2.2 10*3/uL (1.3-4.4); MEAN CELL VOLUME 91.8 fl (81.0-99.0); MEAN CORPUSCULAR HGB 29.6 pg (27.0-31.0); MEAN CORPUSCULAR HGB CONC 32.3 g/dl (33.0-37.0); MEAN PLATELET VOLUME 8.7 fl (9.6-12.3); MONO # 0.9 10*3/uL (0.1-1.0); MONO % 10.4 % (3.0-9.0); NEUT # 4.8 10*3/uL (2.3-7.9); NEUT % 57.5 % (47.0-73.0); PLATELET COUNT AUTOMATED 351 10*3/uL (130-400); RED BLOOD COUNT 4.25 10*6/uL (4.10-5.10); RED CELL DISTRI WIDTH 13.4 % (0-14.5); WHITE BLOOD COUNT 8.4 10*3/uL (4.8-10.8)
[2022-10-25 09:41] LABS: BUN 15 mg/dl (9-23); CHLORIDE 105 mmol/L (98-107); CHOLESTEROL 130 mg/dL (<200); FREE T4 1.15 ng/dl (0.89-1.76); LDL CHOLESTEROL 57 mg/dL (9-159); POTASSIUM 4.5 mmol/L (3.4-5.1); SGPT/ALT 15 U/L (10-49); TRIGLYCERIDES 123 mg/dl (<150)
== END | disposition home or self-care (01) ==
LOC: LAB 08:12
PROVIDERS: ATTEND Internal Medicine Endocrinology, Diabetes & Metabolism
DX: I10 Essential (primary) hypertension (principal); E11.65 Type 2 diabetes mellitus with hyperglycemia; G63 Polyneuropathy in diseases classified elsewhere; E03.4 Atrophy of thyroid (acquired); E78.00 Pure hypercholesterolemia, unspecified; I89.0 Lymphedema, not elsewhere classified; E55.9 Vitamin D deficiency, unspecified; M54.50 Low back pain, unspecified

== ENCOUNTER → 2024-05-15 | Outpatient (CLI) | payer BC | END | disposition home or self-care (01) | LOC: MAMMO 14:41 | PROVIDERS: ATTEND Obstetrics & Gynecology | DX: Z12.31 Encounter for screening mammogram for malignant neoplasm of breast (principal); R92.313 Mammographic fatty tissue density, bilateral breasts ==

== ENCOUNTER → 2024-06-19 | Outpatient (CLI) | payer BC | END | disposition home or self-care (01) | LOC: US 13:48 → MAMMO 14:00 → US 14:00 | PROVIDERS: ATTEND Obstetrics & Gynecology | DX: R92.8 Other abnormal and inconclusive findings on diagnostic imaging of breast (principal) ==